=== PATIENT | male | born 1955 | race Caucasian/White ===

== ENCOUNTER → 2017-06-27 | Outpatient (CLI) | payer OTHER ==
--- NOTE | 2017-06-27 10:16 | DIAGNOSTIC IMAGING REPORT ---
(CHEST) THORAX WITHOUT CT DOSE: 335.63 mGy.cm HISTORY: Dyspnea R93.8 [facility] 06/27/17 AT 10:20. ARRIVE 9:50 TECHNIQUE: Multiaxial CT images of the chest were performed without contrast. A dose lowering technique was utilized adhering to the principles of ALARA. COMPARISON: None. FINDINGS: Minimal scattered atelectasis left lung base. Mild pleural thickening left base. No well-defined focal infiltrate or lungs otherwise appear clear. No evidence for significant pleural effusion. No well-defined focal infiltrate. No significant hilar or mediastinal adenopathy. Operative findings consistent with a prior median sternotomy with coronary arterial calcification. IMPRESSION: 1. Scattered pleural thickening and atelectasis left mid and lower lung region. 2. No significant evidence for a pleural effusion. 3. Study is otherwise negative with findings of a prior median sternotomy The above report was generated using voice recognition software. It may contain grammatical, syntax or spelling errors. Electronically signed by: Joaquin Todd M.D. 06/27/2017 10:15 AM Dictated Date/Time: 06/27/2017 10:08 AM
== END | disposition home or self-care (01) ==
LOC: C.CTS 09:52
PROVIDERS: ATTEND Internal Medicine Critical Care Medicine
DX: R91.8 Other nonspecific abnormal finding of lung field (principal); R93.8 Abnormal findings on diagnostic imaging of other specified body structures

== ENCOUNTER → 2017-08-13 | Outpatient (CLI) | payer OTHER | END | disposition home or self-care (01) | LOC: C.PATHSPEC 18:08 | PROVIDERS: ATTEND Dermatology | DX: C44.01 Basal cell carcinoma of skin of lip (principal); D22.5 Melanocytic nevi of trunk ==

== ENCOUNTER → 2017-09-02 | Outpatient (CLI) | payer OTHER ==
--- NOTE | 2017-09-02 13:49 | DIAGNOSTIC IMAGING REPORT ---
RENAL ULTRASOUND HISTORY: I25.10 CAD (coronary artery disease)I10 [id number] chronic kidney disease. COMPARISON: None. FINDINGS: Right kidney: 9.8 cm. No hydronephrosis. There are few small cysts with the largest measuring 8 mm. Moderate cortical renal thinning with increased cortical echogenicity. Left kidney: 10.1 cm. No hydronephrosis. Moderate cortical renal thinning with increased cortical echogenicity. Bladder: Mild bladder wall thickening. The bilateral ureteral jets were identified. IMPRESSION: 1. No hydronephrosis. 2. Moderate bilateral cortical renal thinning with increased cortical echogenicity suggestive of medical renal disease. 3. Mild bladder wall thickening Electronically signed by: Hernesto Huang M.D. 09/02/2017 1:47 PM Dictated Date/Time: 09/02/2017 1:43 PM
== END | disposition home or self-care (01) ==
LOC: C.ULTR 13:08
PROVIDERS: ATTEND Internal Medicine Nephrology
DX: I25.10 Atherosclerotic heart disease of native coronary artery without angina pectoris (principal); I12.9 Hypertensive chronic kidney disease with stage 1 through stage 4 chronic kidney disease, or unspecified chronic kidney disease; N18.3 Chronic kidney disease, stage 3 (moderate)

== ENCOUNTER → 2017-09-02 | Outpatient (CLI) | payer OTHER ==
[2017-09-02 14:38] LABS: HEMATOCRIT 39.9 % (42-52); HEMOGLOBIN 13.4 g/dL (14.0-18.0); MEAN CELL VOLUME 84.7 fL (80-100); MEAN CORPUSCULAR HEMOGLOBIN 28.5 pg (25-34); MEAN CORPUSCULAR HGB CONC 33.6 g/dl (32-36); PLATELET COUNT 268 K/uL (130-400); RED CELL DISTRIBUTION WIDTH CV 14.4 % (11.5-14.5); RED CELL DISTRIBUTION WIDTH SD 44.9 fL (36.4-46.3); WHITE BLOOD COUNT 5.39 K/uL (4.8-10.8)
[2017-09-02 15:10] LABS: ALBUMIN 3.4 gm/dl (3.4-5.0); BLOOD UREA NITROGEN 31 mg/dl (7-18); CALCIUM 9.3 mg/dl (8.5-10.1); CARBON DIOXIDE 26 mmol/L (21-32); CREATININE 2.53 mg/dl (0.60-1.40); GLUCOSE 90 mg/dl (70-99); POTASSIUM 4.7 mmol/L (3.5-5.1); SODIUM 135 mmol/L (136-145)
[2017-09-02 15:13] LABS: ALKALINE PHOSPHATASE 96 U/L (45-117); ALT/SGPT 30 U/L (12-78); AST/SGOT 22 U/L (15-37)
== END | disposition home or self-care (01) ==
LOC: C.LAB1850 13:50
PROVIDERS: ATTEND Internal Medicine Nephrology
DX: I25.10 Atherosclerotic heart disease of native coronary artery without angina pectoris (principal); I12.9 Hypertensive chronic kidney disease with stage 1 through stage 4 chronic kidney disease, or unspecified chronic kidney disease; N18.3 Chronic kidney disease, stage 3 (moderate)

== ENCOUNTER → 2017-12-12 | Outpatient (CLI) | payer OTHER ==
[2017-12-12 15:29] LABS: ALBUMIN 3.5 gm/dl (3.4-5.0); BLOOD UREA NITROGEN 54 mg/dl (7-18); CARBON DIOXIDE 23 mmol/L (21-32); CREATININE 3.24 mg/dl (0.60-1.40); GLUCOSE 98 mg/dl (70-99); PHOSPHORUS 3.6 mg/dl (2.5-4.9); POTASSIUM 4.3 mmol/L (3.5-5.1); SODIUM 135 mmol/L (136-145)
== END | disposition home or self-care (01) ==
LOC: C.LAB1850 13:06
PROVIDERS: ATTEND Internal Medicine Nephrology
DX: I10 Essential (primary) hypertension (principal); N18.3 Chronic kidney disease, stage 3 (moderate); R80.9 Proteinuria, unspecified; N25.81 Secondary hyperparathyroidism of renal origin

== ENCOUNTER → 2017-12-25 | Outpatient (CLI) | payer OTHER ==
[2017-12-25 15:08] LABS: ALBUMIN 3.5 gm/dl (3.4-5.0); BLOOD UREA NITROGEN 61 mg/dl (7-18); CALCIUM 8.9 mg/dl (8.5-10.1); CARBON DIOXIDE 24 mmol/L (21-32); CREATININE 3.05 mg/dl (0.60-1.40); GLUCOSE 87 mg/dl (70-99); PHOSPHORUS 3.1 mg/dl (2.5-4.9); POTASSIUM 4.2 mmol/L (3.5-5.1); SODIUM 136 mmol/L (136-145)
== END | disposition home or self-care (01) ==
LOC: C.LAB1850 13:27
PROVIDERS: ATTEND Internal Medicine Nephrology
DX: I12.9 Hypertensive chronic kidney disease with stage 1 through stage 4 chronic kidney disease, or unspecified chronic kidney disease (principal); N18.3 Chronic kidney disease, stage 3 (moderate); R80.9 Proteinuria, unspecified; N25.81 Secondary hyperparathyroidism of renal origin

== ENCOUNTER 2022-08-09 16:29 | Inpatient (IN) ==
--- NOTE | 2022-08-09 16:44 | ED Triage Note ---
Date of Service August 09, 2022 History of Present Illness This patient was briefly evaluated while in triage. An abbreviated physical exam was performed. This patient is a 67-year-old Male who presents to the ED for evaluation of low- grade fevers for the past week, today was 101. History of kidney transplant in May of this year at [facility] and his kidney DrGeeta said to go to ER. Having a little burning with urination and mild right abd pain. No URI symptoms. Has also been getting dizzy at times when sits up from lying flat. Denies missing any of his antirejection meds. Physical Exam CONSTITUTIONAL: No acute distress. Well appearing. RESPIRATORY: Clear to auscultation bilaterally. Equal expansion bilaterally. CARDIOVASCULAR: Regular rate and rhythm, Loud murmur (pt reports this is referred from his fistula). Normal peripheral perfusion. GASTROINTESTINAL: Soft, mildly tender in right flank and lower abd NEUROLOGIC: Alert and oriented X 4 with normal affect. Initial orders for labs and / or imaging were placed and patient was placed in the waiting area until a bed is available. Please see further documentation for the full ED course.
--- NOTE | 2022-08-09 17:29 | XRay Report ---
XR chest 1V portable CLINICAL HISTORY: Fever COMPARISON STUDY: Chest radiographs of June 21, 2022. Chest CT December 04, 2019. FINDINGS: Median sternotomy wires and mediastinal surgical clips are noted. Linear densities within t he left lung are unchanged and favor scarring. Blunting of the left costophrenic angle is chronic. Th ere is no pneumothorax or pleural effusion. There is been no change in appearance of the chest. Cardi omediastinal silhouette is stable. No consolidation is identified. IMPRESSION: No acute cardiopulmonary findings. ACT 112: Negative or not required by law. Electronically signed by: Dick Maldonado M.D. 08/09/2022 5:27 PM
[2022-08-09 17:44] LABS: Basophils # (auto) 0.01 K/uL (0-0.2); Basophils % (auto) 0.3 %; Eosinophils # (auto) 0.01 K/uL (0-0.50); Eosinophils % (auto) 0.3 %; Hemoglobin 11.9 g/dl (14.0-18.0); Immature Granulocytes # (auto) 0.02 K/uL (0.01-0.20); Immature Granulocytes % (auto) 0.5 %; Lymphocytes # (auto) 0.16 K/uL (1.2-3.4); Mean Corpuscular Hemoglobin 29.4 pg (25.0-34.0); Mean Corpuscular Hgb Conc 33.1 g/dL (32.0-36.0); Mean Corpuscular Volume 88.9 fL (80.0-100.0); Mean Platelet Volume 9.8 fL (9.4-12.4); Monocytes # (auto) 0.77 K/uL (0.11-0.59); Monocytes % (auto) 19.3 %; Neutrophils # (auto) 3.03 K/uL (1.40-6.50); Neutrophils % (auto) 75.6 %; Platelet Count 177 K/uL (130-400); RDW Coefficient of Variation 13.2 % (11.5-14.5); Red Blood Count 4.05 M/uL (4.70-6.10)
[2022-08-09 17:53] LABS: Albumin Globulin Ratio 1.5 (0.9-2); Albumin Level 4.3 gm/dl (3.4-5.0); BUN Creatinine Ratio 14.1 (10-20); Bilirubin,Total 0.8 mg/dl (0.2-1.0); Creatinine Clr Calc Pharmacy 36.9 ml/min; Est GFR (African American) 39.1 ml/min; Est GFR (Non-African American) 33.7 ml/min; Globulin 2.8 gm/dl (2.5-4.0); Potassium 5.1 mmol/L (3.5-5.1); Total Protein 7.1 gm/dl (6.0-8.3)
[2022-08-09 18:03] LABS: INR 1.1 (0.9-1.1); Prothrombin Time 12.1 Seconds (9.0-12.0)
[2022-08-09] MEDS ORDERED: SODIUM CHLORIDE 0.9% 1000ML 1,000 ML IV ONE (18:09)
[2022-08-09] MEDS ORDERED: CEFEPIME 2,000 MG/20 ML VIAL IV STA (18:09)
--- NOTE | 2022-08-09 18:15 | Emergency Department Note ---
Impression & Plan Kidney transplanted, Leukopenia, Abdominal pain ED Provider Note NAME: MANUEL HAAS AGE: 67 SEX: M : 1955 ARRIVES VIA: Walk-In INFORMANT: Patient ED PROVIDER(S): Sony Gold DO CHIEF COMPLAINT: fever HPI: Patient is a 67-year-old male who presents ER status post CAD with stents, pleural effusion, renal transplant in May who has been having temperatures of 100.5 since this past Saturday. Temperature past 24 hours was 101. Was sent in by [facility] transplant team. He admits to some pain with urination/discomfort as it feels warm when he urinates. He has some intermittent pain over the site but denies all other complaints. No headache or change in vision. No chest pain or shortness of breath. No nausea, vomiting, or diarrhea. No cough or runny nose. PAST MEDICAL HISTORY:See Below PAST SURGICAL HISTORY:See Below FAMILY HISTORY:See Below SOCIAL HISTORY:See Below HOME MEDICATIONS:See Below ALLERGIES:See Below VITALS:See Below PHYSICAL EXAMINATION: GENERAL: Sitting up in bed, alert, well appearing, well nourished, no distress, non-toxic EYE EXAM: normal conjunctiva. OROPHARYNX: no exudate, no erythema, lips, buccal mucosa, and tongue normal and mucous membranes are moist NECK: supple, no nuchal rigidity, no adenopathy, non-tender LUNGS: Clear to auscultation. Normal chest wall mechanics HEART: no murmurs, S1 normal and S2 normal ABDOMEN: abdomen soft, non-tender, normo-active bowel sounds, no masses, no rebound or guarding. Incision in right lower quadrant is clean dry and intact. No tenderness. No swelling. No redness. UPPER EXTREMITIES: upper extremities are grossly normal. LOWER EXTREMITIES: No pitting edema. NEURO EXAM: Normal sensorium, cranial nerves II-XII grossly intact, normal speech, no gross weakness of arms, no gross weakness of legs. MEDICAL DECISION MAKING: Patient is a 67-year-old male who presents ER for above-stated complaint. IV was established blood was obtained. Labs show mild leukopenia at 4000. No significant anemia. BMP with mild hyponatremia at 128. Creatinine 1.9 and per his transplant team baseline is 1.5-1.7. Magnesium slightly low at 1.5. LFTs bilirubin was unremarkable. Pro-Ebenezer 0.32. UA was clean. Bio fire was negative. CT shows edema and fat stranding in the right lower quadrant around the kidney. They are concerned that this may be Pro. UA does not suggest this and based on these findings and her recent transplant I am concerned that this is rejection. Patient was given IV antibiotics. He was given IV fluids. He was updated at bedside. Discussed with Dr. Jeronimo from [facility] transplant team. Patient was accepted to their service but currently there are no beds. Likely a 24-hour wait. Discussed with Dr. Ama Macias for further evaluation management and treatment here. Did update her in regards to Dr. Jeronimo's information. Patient was given IV cefepime while in the ER. Triage Nursing notes reviewed. Limited review of prior medical records performed Vital Signs: reviewed and remarkable for HTNB Differential diagnosis: Differential diagnosis includes etiologies such as sepsis, UTI, pneumonia, metabolic, electrolyte abnormalities, cardiac sources, intracerebral event, toxicologic, neurological, as well as others were entertained. ER treatment provided: See below Diagnostics interpreted by me include EKG and cardiac monitoring as listed below: -Cardiac Monitoring: An order was placed for continuous cardiac monitoring. The monitor shows a rate of 80 with sinus rhythm. -ECG: none -Laboratory studies:Interpreted by me as stated above in MDM and shown below. Imaging studies: Xrays: As interpreted by me: Portable AP upright 1 view of the chest shows no pneumonia CTs show: CT abdomen pelvis as described above per radiology Consultation(s): As described in MDM Procedures:none Critical Care: None Past Med/Surg History Medical History (Updated 08/09/22 @ 22:58 by Lucretia Macias DO) CAD (coronary artery disease) CKD (chronic kidney disease), stage IV Dyslipidemia Hypertension Kidney transplanted 05/21/22 [facility] Multiple lung nodules on CT Prior history of smoking Pleural effusion, left Prediabetes Primary hypogonadism in male Vitamin D deficiency Surgical History S/P arteriovenous (AV) fistula creation S/P CABG (coronary artery bypass graft) S/P coronary artery stent placement Family History Sister Coronary heart disease Hx of CABG ESRD (end stage renal disease) Unknown Colon cancer Mother Coronary heart disease PAD (peripheral artery disease) Denies family history of Ovarian cancer Prostate cancer Myocardial infarction Breast cancer Social History Smoking Status: Former smoker Tobacco Type: Cigarettes Age Started Using Tobacco: 15; Age Quit Using Tobacco: 38; packs per day: 1.5; Cigarettes Per Day: 20; Second Hand Exposure: No; Hx Alcohol Use: Yes (Socially ) Hx Substance Use: No Preferred Language: German Scrap Piler Required: No marital status: Current Living Situation: Spouse current occupational status: retired Feels Safe at Home: Yes Childhood Exposure to Second-Hand Smoke: Yes caffeine: No Dental Care, Regularly: Yes Physical Activity Frequency: 1-2 Times per Week Seatbelt Use: always Sunscreen Use: Yes Allergies Allergies Allergy/AdvReac Type Severity Reaction Status Date / Time iodine Allergy Unknown Hives Verified 08/09/22 20:28 Penicillins Allergy Unknown Hives Verified 08/09/22 20:28 shellfish derived Allergy Unknown Hives Verified 08/09/22 20:28 Home Meds Home Medications Medication Instructions Recorded Confirmed aspirin 81 mg tablet,delayed 81 mg PO DAILY 12/23/18 08/09/22 release magnesium oxide 800 mg PO BID 06/20/22 08/09/22 mycophenolate mofetil 250 mg 1,000 mg PO BID 06/20/22 08/09/22 capsule (CellCept) tacrolimus 1 mg capsule, 8 mg PO Q12H 06/20/22 08/09/22 immediate-release (Prograf) fexofenadine 180 mg tablet 180 mg PO DAILY PRN allergies 06/21/22 08/09/22 (Allergy Relief (fexofenadine)) ondansetron HCl 4 mg tablet 4 mg PO Q8H PRN Nausea 06/21/22 08/09/22 simethicone 80 mg chewable tablet 80 mg PO DAILY PRN .gas/bloating 06/21/22 08/09/22 (Gas Relief (simethicone)) sulfamethoxazole 400 1 tab PO .COMPLEX 07/18/22 08/09/22 mg-trimethoprim 80 mg tablet acetaminophen 500 mg tablet 1,000 mg PO HS 08/09/22 08/09/22 (Tylenol Extra Strength) calcium carbonate 300 mg (750 mg) 600 mg PO BID PRN Acid Reflux 08/09/22 08/09/22 chewable tablet (Tums) famotidine 20 mg tablet (Pepcid AC) 20 mg PO DAILY PRN Acid Reflux 08/09/22 08/09/22 tamsulosin 0.4 mg capsule 0.4 mg PO QPM 08/09/22 08/09/22 Previous Rx's Medication Instructions Recorded metoprolol succinate 50 mg 50 mg PO DAILY #90 tabs 06/11/22 tablet,extended release 24 hr furosemide 40 mg tablet (Lasix) 40 mg PO DAILY PRN edema #30 tabs 06/21/22 atorvastatin 40 mg tablet 40 mg PO QPM #90 tabs 07/11/22 clopidogrel 75 mg tablet (Plavix) 75 mg PO DAILY #90 tabs 07/11/22 Results & Data (ED) Vital Signs Vital Signs - 24 hr 08/09/22 16:41 08/09/22 17:57 Temperature 36.7 C 37.0 C Temperature Source Temporal Artery Scan Oral Pulse Rate 89 Pulse Rate [Right Finger] 87 Respiratory Rate 18 18 Respiratory Effort / Characteristics Non-Labored Spontaneous Respiratory Depth Normal Respiratory Pattern Regular Blood Pressure 149/64 H Blood Pressure [Right Arm] 146/74 H Blood Pressure Mean 92 Blood Pressure Mean [Right Arm] 98 Blood Pressure Position [Right Arm] Lying Pulse Oximetry 97 99 Oxygen Delivery Method Room Air Room Air Sepsis Recent Fever Within 48 Hours No Sepsis New/Unexplained Change in Mental Status No Sepsis Action Taken by Nursing No Action Required Laboratory Data 08/09/22 17:08 08/09/22 17:08 Lab Results 08/09/22 08/09/22 08/09/22 Range/Units 17:08 17:08 17:08 WBC 4.00 L (4.8-10.8) K/ul RBC 4.05 L (4.70-6.10) M/uL Hgb 11.9 L (14.0-18.0) g/dl Hct 36.0 L (42.0-52.0) % MCV 88.9 (80.0-100.0) fL MCH 29.4 (25.0-34.0) pg MCHC 33.1 (32.0-36.0) g/dL RDW Std Deviation 43.0 (36.4-46.3) fL RDW Coeff of Thalia 13.2 (11.5-14.5) % Plt Count 177 (130-400) K/uL MPV 9.8 (9.4-12.4) fL Immature Gran % (Auto) 0.5 % Neut % (Auto) 75.6 % Lymph % (Auto) 4.0 % [place] % (Auto) 19.3 % Eos % (Auto) 0.3 % Baso % (Auto) 0.3 % Neut # (Auto) 3.03 (1.40-6.50) K/uL Lymph # (Auto) 0.16 L (1.2-3.4) K/uL [place] # (Auto) 0.77 H (0.11-0.59) K/uL Eos # (Auto) 0.01 (0-0.50) K/uL Baso # (Auto) 0.01 (0-0.2) K/uL Immature Gran # (Auto) 0.02 (0.01-0.20) K/uL PT 12.1 H (9.0-12.0) Seconds INR 1.1 (0.9-1.1) Sodium 128 L (136-145) mmol/L Potassium 5.1 (3.5-5.1) mmol/L Chloride 98 (98-107) mmol/L Carbon Dioxide 24 (21-32) mmol/L Anion Gap 6 (3-11) BUN 28 H (6-23) mg/dl Creatinine 1.98 H (0.6-1.4) mg/dl Est Cr Clr Drug Dosing 36.9 ml/min Est GFR ( Amer) 39.1 ml/min Est GFR (Non-Af Amer) 33.7 ml/min BUN/Creatinine Ratio 14.1 (10-20) Glucose 146 H (70-99(Fasting)) mg/dl Lactate (0.4-2.0) mmol/L Calcium 10.0 (8.6-10.3) mg/dl Phosphorus 2.5 (2.5-4.9) mg/dl Magnesium 1.5 L (1.7-2.4) mg/dl Total Bilirubin 0.8 (0.2-1.0) mg/dl AST 20 (13-39) U/L ALT 23 (7-52) U/L Alkaline Phosphatase 105 H (34-104) U/L Total Creatine Kinase 60 (30-223) U/L Total Protein 7.1 (6.0-8.3) gm/dl Albumin 4.3 (3.4-5.0) gm/dl Globulin 2.8 (2.5-4.0) gm/dl Albumin/Globulin Ratio 1.5 (0.9-2) Procalcitonin (0-0.5) ng/ml Urine Color Urine Appearance (Clear) Urine pH (4.5-7.5) Ur Specific [place] (1.000-1.030) Urine Protein (Negative) Urine Glucose (UA) (Negative) Urine Ketones (Negative) Urine Blood (Negative) Urine Nitrite (Negative) Urine Bilirubin (Negative) Urine Urobilinogen (Negative) Ur Leukocyte Esterase (Negative) Urine WBC (Auto) (0-5) /hpf Urine RBC (Auto) (0-4) /hpf U Hyaline Cast (Auto) (0-5) /lpf U Epithel Cells (Auto) (0-5) /lpf Urine Bacteria (Auto) (Negative) Adenovirus (PCR) (NotDetected) B. pertussis DNA (PCR) (NotDetected) B.parapertussis DNA PCR (NotDetected) C. pneumoniae DNA (PCR) (NotDetected) Coronavirus OC43 (PCR) (NotDetected) Coronavirus HKU1 (PCR) (NotDetected) Coronavirus 229E (PCR) (NotDetected) SARS-CoV-2 (PCR) (NotDetected) Coronavirus NL63 (PCR) (NotDetected) Human Metapneumovir PCR (NotDetected) Influenza Type A (PCR) (NotDetected) Influenza Type B (PCR) (NotDetected) M. pneumoniae (PCR) (NotDetected) Parainfluenza 1 (PCR) (NotDetected) Parainfluenza 2 (PCR) (NotDetected) Parainfluenza 3 (PCR) (NotDetected) Parainfluenza 4 (PCR) (NotDetected) RSV (PCR) (NotDetected) Entero/Rhino (PCR) (NotDetected) 08/09/22 08/09/22 08/09/22 Range/Units 17:08 17:08 17:59 WBC (4.8-10.8) K/ul RBC (4.70-6.10) M/uL Hgb (14.0-18.0) g/dl Hct (42.0-52.0) % MCV (80.0-100.0) fL MCH (25.0-34.0) pg MCHC (32.0-36.0) g/dL RDW Std Deviation (36.4-46.3) fL RDW Coeff of Thalia (11.5-14.5) % Plt Count (130-400) K/uL MPV (9.4-12.4) fL Immature Gran % (Auto) % Neut % (Auto) % Lymph % (Auto) % [place] % (Auto) % Eos % (Auto) % Baso % (Auto) % Neut # (Auto) (1.40-6.50) K/uL Lymph # (Auto) (1.2-3.4) K/uL [place] # (Auto) (0.11-0.59) K/uL Eos # (Auto) (0-0.50) K/uL Baso # (Auto) (0-0.2) K/uL Immature Gran # (Auto) (0.01-0.20) K/uL PT (9.0-12.0) Seconds INR (0.9-1.1) Sodium (136-145) mmol/L Potassium (3.5-5.1) mmol/L Chloride (98-107) mmol/L Carbon Dioxide (21-32) mmol/L Anion Gap (3-11) BUN (6-23) mg/dl Creatinine (0.6-1.4) mg/dl Est Cr Clr Drug Dosing ml/min Est GFR ( Amer) ml/min Est GFR (Non-Af Amer) ml/min BUN/Creatinine Ratio (10-20) Glucose (70-99(Fasting)) mg/dl Lactate (0.4-2.0) mmol/L Calcium (8.6-10.3) mg/dl Phosphorus (2.5-4.9) mg/dl Magnesium (1.7-2.4) mg/dl Total Bilirubin (0.2-1.0) mg/dl AST (13-39) U/L ALT (7-52) U/L Alkaline Phosphatase (34-104) U/L Total Creatine Kinase (30-223) U/L Total Protein (6.0-8.3) gm/dl Albumin (3.4-5.0) gm/dl Globulin (2.5-4.0) gm/dl Albumin/Globulin Ratio (0.9-2) Procalcitonin 0.32 (0-0.5) ng/ml Urine Color Yellow Urine Appearance Clear (Clear) Urine pH 5.0 (4.5-7.5) Ur Specific [place] 1.018 (1.000-1.030) Urine Protein Trace H (Negative) Urine Glucose (UA) Negative (Negative) Urine Ketones Negative (Negative) Urine Blood Negative (Negative) Urine Nitrite Negative (Negative) Urine Bilirubin Negative (Negative) Urine Urobilinogen Negative (Negative) Ur Leukocyte Esterase Negative (Negative) Urine WBC (Auto) 1-5 (0-5) /hpf Urine RBC (Auto) 0-4 (0-4) /hpf U Hyaline Cast (Auto) 1-5 (0-5) /lpf U Epithel Cells (Auto) 5-10 H (0-5) /lpf Urine Bacteria (Auto) Negative (Negative) Adenovirus (PCR) Not Detected (NotDetected) B. pertussis DNA (PCR) Not Detected (NotDetected) B.parapertussis DNA PCR Not Detected (NotDetected) C. pneumoniae DNA (PCR) Not Detected (NotDetected) Coronavirus OC43 (PCR) Not Detected (NotDetected) Coronavirus HKU1 (PCR) Not Detected (NotDetected) Coronavirus 229E (PCR) Not Detected (NotDetected) SARS-CoV-2 (PCR) Not Detected (NotDetected) Coronavirus NL63 (PCR) Not Detected (NotDetected) Human Metapneumovir PCR Not Detected (NotDetected) Influenza Type A (PCR) Not Detected (NotDetected) Influenza Type B (PCR) Not Detected (NotDetected) M. pneumoniae (PCR) Not Detected (NotDetected) Parainfluenza 1 (PCR) Not Detected (NotDetected) Parainfluenza 2 (PCR) Not Detected (NotDetected) Parainfluenza 3 (PCR) Not Detected (NotDetected) Parainfluenza 4 (PCR) Not Detected (NotDetected) RSV (PCR) Not Detected (NotDetected) Entero/Rhino (PCR) Not Detected (NotDetected) 08/09/22 Range/Units 18:10 WBC (4.8-10.8) K/ul RBC (4.70-6.10) M/uL Hgb (14.0-18.0) g/dl Hct (42.0-52.0) % MCV (80.0-100.0) fL MCH (25.0-34.0) pg MCHC (32.0-36.0) g/dL RDW Std Deviation (36.4-46.3) fL RDW Coeff of Thalia (11.5-14.5) % Plt Count (130-400) K/uL MPV (9.4-12.4) fL Immature Gran % (Auto) % Neut % (Auto) % Lymph % (Auto) % [place] % (Auto) % Eos % (Auto) % Baso % (Auto) % Neut # (Auto) (1.40-6.50) K/uL Lymph # (Auto) (1.2-3.4) K/uL [place] # (Auto) (0.11-0.59) K/uL Eos # (Auto) (0-0.50) K/uL Baso # (Auto) (0-0.2) K/uL Immature Gran # (Auto) (0.01-0.20) K/uL PT (9.0-12.0) Seconds INR (0.9-1.1) Sodium (136-145) mmol/L Potassium (3.5-5.1) mmol/L Chloride (98-107) mmol/L Carbon Dioxide (21-32) mmol/L Anion Gap (3-11) BUN (6-23) mg/dl Creatinine (0.6-1.4) mg/dl Est Cr Clr Drug Dosing ml/min Est GFR ( Amer) ml/min Est GFR (Non-Af Amer) ml/min BUN/Creatinine Ratio (10-20) Glucose (70-99(Fasting)) mg/dl Lactate 0.7 (0.4-2.0) mmol/L Calcium (8.6-10.3) mg/dl Phosphorus (2.5-4.9) mg/dl Magnesium (1.7-2.4) mg/dl Total Bilirubin (0.2-1.0) mg/dl AST (13-39) U/L ALT (7-52) U/L Alkaline Phosphatase (34-104) U/L Total Creatine Kinase (30-223) U/L Total Protein (6.0-8.3) gm/dl Albumin (3.4-5.0) gm/dl Globulin (2.5-4.0) gm/dl Albumin/Globulin Ratio (0.9-2) Procalcitonin (0-0.5) ng/ml Urine Color Urine Appearance (Clear) Urine pH (4.5-7.5) Ur Specific [place] (1.000-1.030) Urine Protein (Negative) Urine Glucose (UA) (Negative) Urine Ketones (Negative) Urine Blood (Negative) Urine Nitrite (Negative) Urine Bilirubin (Negative) Urine Urobilinogen (Negative) Ur Leukocyte Esterase (Negative) Urine WBC (Auto) (0-5) /hpf Urine RBC (Auto) (0-4) /hpf U Hyaline Cast (Auto) (0-5) /lpf U Epithel Cells (Auto) (0-5) /lpf Urine Bacteria (Auto) (Negative) Adenovirus (PCR) (NotDetected) B. pertussis DNA (PCR) (NotDetected) B.parapertussis DNA PCR (NotDetected) C. pneumoniae DNA (PCR) (NotDetected) Coronavirus OC43 (PCR) (NotDetected) Coronavirus HKU1 (PCR) (NotDetected) Coronavirus 229E (PCR) (NotDetected) SARS-CoV-2 (PCR) (NotDetected) Coronavirus NL63 (PCR) (NotDetected) Human Metapneumovir PCR (NotDetected) Influenza Type A (PCR) (NotDetected) Influenza Type B (PCR) (NotDetected) M. pneumoniae (PCR) (NotDetected) Parainfluenza 1 (PCR) (NotDetected) Parainfluenza 2 (PCR) (NotDetected) Parainfluenza 3 (PCR) (NotDetected) Parainfluenza 4 (PCR) (NotDetected) RSV (PCR) (NotDetected) Entero/Rhino (PCR) (NotDetected) Administered Medications Atorvastatin Calcium (Atorvastatin 40 Mg Tab) 40 mg PO QPM LUISITO Stop: 09/08/22 22:15 Last Admin: 08/09/22 22:58 Dose: Not Given Documented By: FRANC Lactated Ringer's (Lr) 1,000 mls @ 100 mls/hr IV .Q10H LUISITO Stop: 08/10/22 18:15 Last Admin: 08/09/22 22:48 Dose: 100 mls/hr Documented By: USP Mycophenolate Mofetil (Mycophenolate Mofetil 250 Mg Cap) 1,000 mg PO BID LUISITO Stop: 09/08/22 22:15 Last Admin: 08/09/22 22:58 Dose: Not Given Documented By: USP Tacrolimus (Tacrolimus 1 Mg Cap) 8 mg PO Q12H LUISITO Stop: 09/08/22 22:15 Last Admin: 08/09/22 22:58 Dose: Not Given Documented By: FRANC Tamsulosin HCl (Tamsulosin Hcl 0.4 Mg Cap) 0.4 mg PO QPM LUISITO Stop: 09/08/22 22:15 Last Admin: 08/09/22 22:59 Dose: Not Given Documented By: FRANC Discontinued Medications Sodium Chloride (Nss 1000ml) 1,000 mls @ 999 mls/hr IV .Q1H1M ONE Stop: 08/09/22 19:09 Last Infusion: 08/09/22 19:27 Dose: 0 mls/hr Documented By: Admin: 08/09/22 18:14 Dose: 999 mls/hr Documented By: PONCHO Cefepime HCl (Maxipime) 2,000 mg in 20 mls @ 5 mls/min IV NOW STA; Protocol Stop: 08/09/22 18:12 Last Admin: 08/09/22 18:14 Dose: 5 mls/min Documented By: PONCHO Imaging Data Radiologist's Impression: Abdomen/Pelvis CT 08/09/22 16:[address] WITHOUT CONTRAST CT DOSE: 416.94 mGy.cm HISTORY: fever, h/o right kidney transplant TECHNIQUE: Multiaxial CT images of the abdomen and pelvis were performed without contrast. A dose lowering technique was utilized adhering to the principles of ALARA. COMPARISON STUDY: None. FINDINGS: Emphysema at the lung bases. There are few linear scarlike densities also seen at the lung bases. No pneumoperitoneum. No pneumatosis. No acute fractures identified. There are poststernotomy changes. The unenhanced liver, gallbladder, spleen, adrenal glands, and pancreas are unremarkable. There are atrophic hoopa kidneys containing a few hypodense lesions. These are technically indeterminate on this noncontrast study but statistically represent cysts. Dominant lesion within the left kidney measures 1.9 cm. No stones or hydronephrosis within the hoopa kidneys. Mild calcified plaque within the normal caliber abdominal aorta. No retroperitoneal lymphadenopathy. Moderate bladder wall thickening with adjacent fat stranding. The prostate gland is normal in size. Suboptimal evaluation for bowel pathology due to the lack of intravenous and oral contrast. However, there is no definite bowel wall thickening or obstruction. [id number] fecal retention is noted. Normal appendix. There is a right lower quadrant renal transplant noted. Right transplant perinephric edema/fat stranding. The right renal transplant appears edematous. There is also edema within the right renal sinus. Small sliver of perinephric fluid seen along the inferior aspect of the right renal transplant on image 327. This measures approximately 4.0 x 2.0 cm. IMPRESSION: 1. There is edema and fat stranding both within and surrounding the right lower quadrant renal transplant. This is nonspecific but favors an acute pyelonephritis. An acute on chronic rejection could also have a similar appearance in the appropriate clinical setting. Recommend correlation with urinalysis. 2. Small sliver of perinephric fluid inferior to the right renal transplant. This is likely reactive.. A developing perinephric abscess is considered less likely given the lack of associated gas but not entirely excluded. 3. Bladder wall thickening with associated fat stranding likely representing a cystitis. Recommend correlation with urinalysis. 4. No bowel wall thickening or obstruction. 5. Additional findings as described above. ACT 112: Negative or not required by law. Electronically signed by: Hernesto Huang M.D. 08/09/2022 6:17 PM Chest X-Ray 08/09/22 16:45 XR chest 1V portable CLINICAL HISTORY: Fever COMPARISON STUDY: Chest radiographs of June 21, 2022. Chest CT December [birth year], 2020. FINDINGS: Median sternotomy wires and mediastinal surgical clips are noted. Linear densities within the left lung are unchanged and favor scarring. Blunting of the left costophrenic angle is chronic. There is no pneumothorax or pleural effusion. There is been no change in appearance of the chest. Cardiomediastinal silhouette is stable. No consolidation is identified. IMPRESSION: No acute cardiopulmonary findings. ACT 112: Negative or not required by law. Electronically signed by: Dick Maldonado M.D. 08/09/2022 5:27 PM Discharge Plan Visit Data Chief Complaint: Fever Stated Complaint: RECENT KIDNEY TRANSPLANT, FEVER ED Provider: Sony Gold Discharge Problem: Kidney transplanted, Leukopenia, Abdominal pain Patient Disposition: Admitted As Inpatient Discharge Instructions Interventions: ED Discharge Assessment Last Done: 08/09/22 21:58
--- NOTE | 2022-08-09 18:19 | CT Scan Report ---
ABDOMEN AND PELVIS CT WITHOUT CONTRAST CT DOSE: 416.94 mGy.cm HISTORY: fever, h/o right kidney transplant TECHNIQUE: Multiaxial CT images of the abdomen and pelvis were performed without contrast. A dose lo wering technique was utilized adhering to the principles of ALARA. COMPARISON STUDY: None. FINDINGS: Emphysema at the lung bases. There are few linear scarlike densities also seen at the lung bases. No pneumoperitoneum. No pneumatosis. No acute fractures identified. There are poststernotomy c hanges. The unenhanced liver, gallbladder, spleen, adrenal glands, and pancreas are unremarkable. The re are atrophic [place] kidneys containing a few hypodense lesions. These are technically indeterminat e on this noncontrast study but statistically represent cysts. Dominant lesion within the left kidney measures 1.9 cm. No stones or hydronephrosis within the [place] kidneys. Mild calcified plaque within the normal caliber abdominal aorta. No retroperitoneal lymphadenopathy. Moderate bladder wall thicke gris with adjacent fat stranding. The prostate gland is normal in size. Suboptimal evaluation for bow el pathology due to the lack of intravenous and oral contrast. However, there is no definite bowel wa ll thickening or obstruction. [id number] fecal retention is noted. Normal appendix. There is a right lower quadrant renal transplant noted. Right transplant perinephric edema/fat stranding. The ri ght renal transplant appears edematous. There is also edema within the right renal sinus. Small slive r of perinephric fluid seen along the inferior aspect of the right renal transplant on image 327. Thi s measures approximately 4.0 x 2.0 cm. IMPRESSION: 1. There is edema and fat stranding both within and surrounding the right lower quadrant renal transp lant. This is nonspecific but favors an acute pyelonephritis. An acute on chronic rejection could als o have a similar appearance in the appropriate clinical setting. Recommend correlation with urinalysi s. 2. Small sliver of perinephric fluid inferior to the right renal transplant. This is likely reactive. . A developing perinephric abscess is considered less likely given the lack of associated gas but not entirely excluded. 3. Bladder wall thickening with associated fat stranding likely representing a cystitis. Recommend co rrelation with urinalysis. 4. No bowel wall thickening or obstruction. 5. Additional findings as described above. ACT 112: Negative or not required by law. Electronically signed by: Hernesto Huang M.D. 08/09/2022 6:17 PM
[2022-08-09 18:26] LABS: Appearance Urine Clear (Clear); Bacteria Urine Automated Negative (Negative); Bilirubin Urine Negative (Negative); Blood Urine Negative (Negative); Color Urine Yellow; Glucose Urine UA Negative (Negative); Ketones Urine Negative (Negative); Leukocyte Esterase Urine Negative (Negative); Nitrite Urine Negative (Negative); Protein Urine Trace (Negative); RBC Urine Automated 0-4 /hpf (0-4); Specific Gravity Urine 1.018 (1.000-1.030); Urobilinogen Urine Negative (Negative)
[2022-08-09 18:26] LABS: Adenovirus PCR Not Detected (NotDetected); Bordetella parapertussis PCR Not Detected (NotDetected); Bordetella pertussis PCR Not Detected (NotDetected); Chlamydia pneumoniae PCR Not Detected (NotDetected); Coronavirus 229E PCR Not Detected (NotDetected); Coronavirus CoV-2 (COVID19)PCR Not Detected (NotDetected); Coronavirus HKU1 PCR Not Detected (NotDetected); Coronavirus NL63 PCR Not Detected (NotDetected); Coronavirus OC43PCR Not Detected (NotDetected); Human Metapneumovirus PCR Not Detected (NotDetected); Influenza A PCR Not Detected (NotDetected); Influenza B PCR Not Detected (NotDetected); Mycoplasma pneumoniae PCR Not Detected (NotDetected); Parainfluenza Virus 1 PCR Not Detected (NotDetected); Parainfluenza Virus 2 PCR Not Detected (NotDetected); Parainfluenza Virus 3 PCR Not Detected (NotDetected); Parainfluenza Virus 4 PCR Not Detected (NotDetected); Respiratory Syncytial VirusPCR Not Detected (NotDetected); Rhinovirus/Enterovirus PCR Not Detected (NotDetected)
--- NOTE | 2022-08-09 20:36 | History & Physical Report ---
Date of Service August 09, 2022 Assessment & Plan (1) Fever: Plan: 67-year-old male with history of end-stage renal disease status post kidney transplant performed on 05/21/2022 at [facility]. Patient has been on antirejection regimen to include mycophenolate mofetil and tacrolimus as well as prophylactic Bactrim 3 times weekly. He presents with low-grade fever ongoing for the last 7 days. Higher temperature today Tmax = 101 prompted him to seek care in the ER. No obvious source of infection with exception of a possible sinusitis. Patient denies cough, chest pain, shortness of breath. Denies abdominal pain, nausea, vomiting. Some mild dysuria noted yesterday. Otherwise, no complaints. Work-up reveals leukopenia with WBC = 4 with lymphopenia. Urinalysis with trace protein. No obvious infection. Respiratory BioFire panel completely negative. Chest x-ray with no obvious infiltrate. CT of the abdomen as above with perinephric stranding and inflammation concerning for infection versus acute on chronic rejection. Case was discussed with transplant team at [facility]. Patient has been accepted for transfer however, no beds are available at this time. We will admit to medical Follow culturesblood and urine sent from the ER Empiric cefepime Tylenol as needed for fever (2) Kidney transplanted: Plan: Patient with history of end-stage renal disease of unknown etiology status post kidney transplant performed on 05/21/2022 at [facility]. He presents today with several days of intermittent fever. CT abdomen findings as above, perinephric inflammation and stranding concerning for infection versus acute on chronic rejection. Patient's urinalysis and overall clinical picture does not strongly support an infection of urinary source. Unfortunately, findings are concerning for acute rejection - uncertain to what degree CT findings represent postoperative changes. Patient's renal function is slightly worse than baseline with BUN = 28, creatinine = 1.98 (baseline creatinine reported to be 1.5-1.7). Of note, he has been on an increased dose of Bactrim which can lead to elevated creatinine levels. Patient's urinalysis with only trace protein present. Continue mycophenolate mofetil 1000 mg p.o. twice daily Continue tacrolimus 8 mg p.o. every 12 hours Consider treatment with high-dose Solu-Medrol after discussion with [facility] transplant team Check tacrolimus level CMV sent from ER Patient has been accepted for transfer to [facility]. Unfortunately, no beds are available at this time. Will acutely manage until transfer occurs. (3) CAD (coronary artery disease): Plan: Chronic. Stable. Patient status post CABG with subsequent stent placement in May 2022 closely following his transplant surgery. He denies chest pain or dyspnea. Continue aspirin 81 mg p.o. daily Continue Plavix 75 mg p.o. daily Continue atorvastatin 40 mg p.o. every afternoon Continue metoprolol 50 mg p.o. daily (4) Hypertension: Plan: Blood pressure mildly elevated at 146/74 Continue metoprolol 50 mg p.o. daily Continue to monitor (5) Dyslipidemia: Plan: Chronic. Stable. Continue atorvastatin 40 mg p.o. every afternoon FENLR at 100 mL/h x 2 L, monitor electrolytes and replete as neededBMP in the morning, heart healthy diet as tolerated Prophylaxislow risk for acute DVT. SCDs to bilateral lower extremities Codefull per discussion with patient and Dispositionadmit to medical History of Present Illness Chief Complaint: Fever in immunocompromised patient Primary Care Provider: Kandice Dumont MD Kevin Hough is a pleasant 67-year-old male with history of end-stage renal disease due to unknown etiology status post donor kidney transplantation 05/21/2022. He is on immunosuppressive therapy with mycophenolate mofetil and tacrolimus as well as prophylactic Bactrim 3 times weekly. Patient presents today with complaint of fever. Patient had a routine follow-up appointment with the transplant service at [facility] on 08/02/2022. At that time he was doing well with no acute complaints. Upon returning home, he developed a low-grade fever of 100.1. He was seen in his primary care office on 08/03/2022 with complaint of dizziness and acute sinusitis. He was given a prescription for Levaquin 500 mg daily which, after reviewing the side effects, he did not take due to concern for potential complications with his transplant. He called his PCP again and was told he could increase his Bactrim from his prophylactic dose of 1 tab 3 times weekly (Saturday/Saturday/Saturday) to twice daily dosing x7 days for treatment of presumed sinusitis. Patient has taken 2 days of twice daily dosing thus far. Patient had an elevated temperature last night to 101 which prompted him to come to the ER. He denies chills, body aches, chest pain, cough, shortness of breath. Denies abdominal pain, nausea, vomiting. He has had some loose stools but does not describe diarrhea. No blood or mucus in his bowel movements. He reports normal urine output with no hematuria or foamy urine. Yesterday he did experience some very mild discomfort with urination. No additional complaints at this time In the ER he is afebrile, mildly hypertensive otherwise hemodynamically stable. Normal respiratory status saturating 99% on room air. ER course: Normal saline x1 L Cefepime 2 g IV Allergies Allergy/AdvReac Type Severity Reaction Status Date / Time iodine Allergy Unknown Hives Verified 08/09/22 20:28 Penicillins Allergy Unknown Hives Verified 08/09/22 20:28 shellfish derived Allergy Unknown Hives Verified 08/09/22 20:28 Home Medications Medication Instructions Recorded Confirmed Type aspirin 81 mg tablet,delayed 81 mg PO DAILY 12/23/18 08/09/22 History release metoprolol succinate 50 mg 50 mg PO DAILY #90 tabs 06/11/22 08/09/22 Rx tablet,extended release 24 hr magnesium oxide 800 mg PO BID 06/20/22 08/09/22 History mycophenolate mofetil 250 mg 1,000 mg PO BID 06/20/22 08/09/22 History capsule (CellCept) tacrolimus 1 mg capsule, 8 mg PO Q12H 06/20/22 08/09/22 History immediate-release (Prograf) fexofenadine 180 mg tablet 180 mg PO DAILY PRN allergies 06/21/22 08/09/22 History (Allergy Relief (fexofenadine)) furosemide 40 mg tablet (Lasix) 40 mg PO DAILY PRN edema #30 tabs 06/21/2207/19 Rx ondansetron HCl 4 mg tablet 4 mg PO Q8H PRN Nausea 06/21/22 08/09/22 History simethicone 80 mg chewable tablet 80 mg PO DAILY PRN .gas/bloating 06/21/22 08/09/22 History (Gas Relief (simethicone)) atorvastatin 40 mg tablet 40 mg PO QPM #90 tabs 07/11/22 08/09/22 Rx clopidogrel 75 mg tablet (Plavix) 75 mg PO DAILY #90 tabs 07/11/22 08/09/22 Rx sulfamethoxazole 400 1 tab PO .COMPLEX 07/18/22 08/09/22 History mg-trimethoprim 80 mg tablet acetaminophen 500 mg tablet 1,000 mg PO HS 08/09/22 08/09/22 History (Tylenol Extra Strength) calcium carbonate 300 mg (750 mg) 600 mg PO BID PRN Acid Reflux 08/09/22 08/09/22 History chewable tablet (Tums) famotidine 20 mg tablet (Pepcid AC) 20 mg PO DAILY PRN Acid Reflux 08/09/22 08/09/22 History tamsulosin 0.4 mg capsule 0.4 mg PO QPM 08/09/22 08/09/22 History Past Med/Surg History Medical History (Updated 08/09/22 @ 22:58 by Lucretia Macias DO) CAD (coronary artery disease) CKD (chronic kidney disease), stage IV Dyslipidemia Hypertension Kidney transplanted 05/21/22 [facility] Multiple lung nodules on CT Prior history of smoking Pleural effusion, left Prediabetes Primary hypogonadism in male Vitamin D deficiency Surgical History S/P arteriovenous (AV) fistula creation S/P CABG (coronary artery bypass graft) S/P coronary artery stent placement Family History Sister Coronary heart disease Hx of CABG ESRD (end stage renal disease) Unknown Colon cancer Mother Coronary heart disease PAD (peripheral artery disease) Denies family history of Ovarian cancer Prostate cancer Myocardial infarction Breast cancer Social History Smoking Status: Former smoker Tobacco Type: Cigarettes Age Started Using Tobacco: 15; Age Quit Using Tobacco: 38; packs per day: 1.5; Cigarettes Per Day: 20; Second Hand Exposure: No; Hx Alcohol Use: Yes (Socially ) Hx Substance Use: No Preferred Language: Chadian Dress Operator Required: No marital status: Current Living Situation: Spouse current occupational status: retired Feels Safe at Home: Yes Childhood Exposure to Second-Hand Smoke: Yes caffeine: No Dental Care, Regularly: Yes Physical Activity Frequency: 1-2 Times per Week Seatbelt Use: always Sunscreen Use: Yes Review of Systems Review of Systems: All systems reviewed & are unremarkable except as noted in HPI & below Physical Exam Physical Exam: General: patient resting comfortably, NAD, non-toxic in appearance, AA&O x 4 Skin: warm, dry, intact, no rashes or lesions HEENT: NC/AT, PERRL, EOMI, anicteric sclera, conjunctiva without injection, external ear normal to inspection and nontender, nares patent, moist mucus membr anes, dentition intact, no oropharyngeal lesions, neck supple, trachea midline, no LAD, no thyromegaly, no JVD Heart: +S1/S2, regular, 3/6 systolic ejection murmur across precordium Lungs: equal air entry bilaterally, no rales/rhonchi/wheezes Abd: +BS, soft, NT/ND, no masses/organomegaly/ascites, well-healed incision in right lower quadrant at site of renal transplant. Very mild tenderness with palpation of transplanted kidney. Ext: warm, 2+ pulses in UE/LE bilaterally, no clubbing/cyanosis or edema, AV fistula left upper extremity with palpable thrill Neuro: nonfocal, patient AA&O x 4, speech intact, no facial droop, moving all extremities on command with equal strength 5/5 Results & Data Results & Data Vital Signs (Past 12 Hours) Vital Signs Temp Pulse Pulse Resp BP BP Pulse Ox 08/09/22 17:57 37.0 C 87 18 146/74 H 99 08/09/22 16:41 36.7 C 89 18 149/64 H 97 O2 Del Method 08/09/22 17:57 Room Air 08/09/22 16:41 Room Air Laboratory Results Laboratory Results WBC 4.00 K/ul (4.8-10.8) L 08/09/22 17:08 RBC 4.05 M/uL (4.70-6.10) L 08/09/22 17:08 Hgb 11.9 g/dl (14.0-18.0) L 08/09/22 17:08 Hct 36.0 % (42.0-52.0) L 08/09/22 17:08 MCV 88.9 fL (80.0-100.0) 08/09/22 17:08 MCH 29.4 pg (25.0-34.0) 08/09/22 17:08 MCHC 33.1 g/dL (32.0-36.0) 08/09/22 17:08 RDW Std Deviation 43.0 fL (36.4-46.3) 08/09/22 17:08 RDW Coeff of Thalia 13.2 % (11.5-14.5) 08/09/22 17:08 Plt Count 177 K/uL (130-400) 08/09/22 17:08 MPV 9.8 fL (9.4-12.4) 08/09/22 17:08 Immature Gran % (Auto) 0.5 % 08/09/22 17:08 Neut % (Auto) 75.6 % 08/09/22 17:08 Lymph % (Auto) 4.0 % 08/09/22 17:08 Archer % (Auto) 19.3 % 08/09/22 17:08 Eos % (Auto) 0.3 % 08/09/22 17:08 Baso % (Auto) 0.3 % 08/09/22 17:08 Neut # (Auto) 3.03 K/uL (1.40-6.50) 08/09/22 17:08 Lymph # (Auto) 0.16 K/uL (1.2-3.4) L 08/09/22 17:08 Archer # (Auto) 0.77 K/uL (0.11-0.59) H 08/09/22 17:08 Eos # (Auto) 0.01 K/uL (0-0.50) 08/09/22 17:08 Baso # (Auto) 0.01 K/uL (0-0.2) 08/09/22 17:08 Immature Gran # (Auto) 0.02 K/uL (0.01-0.20) 08/09/22 17:08 PT 12.1 Seconds (9.0-12.0) H 08/09/22 17:08 INR 1.1 (0.9-1.1) 08/09/22 17:08 Sodium 128 mmol/L (136-145) L 08/09/22 17:08 Potassium 5.1 mmol/L (3.5-5.1) 08/09/22 17:08 Chloride 98 mmol/L (98-107) 08/09/22 17:08 Carbon Dioxide 24 mmol/L (21-32) 08/09/22 17:08 Anion Gap 6 (3-11) 08/09/22 17:08 BUN 28 mg/dl (6-23) H 08/09/22 17:08 Creatinine 1.98 mg/dl (0.6-1.4) H 08/09/22 17:08 Est Cr Clr Drug Dosing 36.9 ml/min 08/09/22 17:08 Est GFR ( Amer) 39.1 ml/min 08/09/22 17:08 Est GFR (Non-Af Amer) 33.7 ml/min 08/09/22 17:08 BUN/Creatinine Ratio 14.1 (10-20) 08/09/22 17:08 Glucose 146 mg/dl (70-99(Fasting)) H 08/09/22 17:08 Lactate 0.7 mmol/L (0.4-2.0) 08/09/22 18:10 Calcium 10.0 mg/dl (8.6-10.3) 08/09/22 17:08 Phosphorus Cancelled 08/09/22 22:16 Magnesium Cancelled 08/09/22 22:16 Total Bilirubin 0.8 mg/dl (0.2-1.0) 08/09/22 17:08 AST 20 U/L (13-39) 08/09/22 17:08 ALT 23 U/L (7-52) 08/09/22 17:08 Alkaline Phosphatase 105 U/L (34-104) H 08/09/22 17:08 Total Creatine Kinase Cancelled 08/09/22 22:16 Total Protein 7.1 gm/dl (6.0-8.3) 08/09/22 17:08 Albumin 4.3 gm/dl (3.4-5.0) 08/09/22 17:08 Globulin 2.8 gm/dl (2.5-4.0) 08/09/22 17:08 Albumin/Globulin Ratio 1.5 (0.9-2) 08/09/22 17:08 Procalcitonin 0.32 ng/ml (0-0.5) 08/09/22 17:08 Urine Color Yellow 08/09/22 17:59 Urine Appearance Clear (Clear) 08/09/22 17:59 Urine pH 5.0 (4.5-7.5) 08/09/22 17:59 Ur Specific [place] 1.018 (1.000-1.030) 08/09/22 17:59 Urine Protein Trace (Negative) H 08/09/22 17:59 Urine Glucose (UA) Negative (Negative) 08/09/22 17:59 Urine Ketones Negative (Negative) 08/09/22 17:59 Urine Blood Negative (Negative) 08/09/22 17:59 Urine Nitrite Negative (Negative) 08/09/22 17:59 Urine Bilirubin Negative (Negative) 08/09/22 17:59 Urine Urobilinogen Negative (Negative) 08/09/22 17:59 Ur Leukocyte Esterase Negative (Negative) 08/09/22 17:59 Urine WBC (Auto) 1-5 /hpf (0-5) 08/09/22 17:59 Urine RBC (Auto) 0-4 /hpf (0-4) 08/09/22 17:59 U Hyaline Cast (Auto) 1-5 /lpf (0-5) 08/09/22 17:59 U Epithel Cells (Auto) 5-10 /lpf (0-5) H 08/09/22 17:59 Urine Bacteria (Auto) Negative (Negative) 08/09/22 17:59 Adenovirus (PCR) Not Detected (NotDetected) 08/09/22 17:08 B. pertussis DNA (PCR) Not Detected (NotDetected) 08/09/22 17:08 B.parapertussis DNA PCR Not Detected (NotDetected) 08/09/22 17:08 C. pneumoniae DNA (PCR) Not Detected (NotDetected) 08/09/22 17:08 Coronavirus OC43 (PCR) Not Detected (NotDetected) 08/09/22 17:08 Coronavirus HKU1 (PCR) Not Detected (NotDetected) 08/09/22 17:08 Coronavirus 229E (PCR) Not Detected (NotDetected) 08/09/22 17:08 SARS-CoV-2 (PCR) Not Detected (NotDetected) 08/09/22 17:08 Coronavirus NL63 (PCR) Not Detected (NotDetected) 08/09/22 17:08 Human Metapneumovir PCR Not Detected (NotDetected) 08/09/22 17:08 Influenza Type A (PCR) Not Detected (NotDetected) 08/09/22 17:08 Influenza Type B (PCR) Not Detected (NotDetected) 08/09/22 17:08 M. pneumoniae (PCR) Not Detected (NotDetected) 08/09/22 17:08 Parainfluenza 1 (PCR) Not Detected (NotDetected) 08/09/22 17:08 Parainfluenza 2 (PCR) Not Detected (NotDetected) 08/09/22 17:08 Parainfluenza 3 (PCR) Not Detected (NotDetected) 08/09/22 17:08 Parainfluenza 4 (PCR) Not Detected (NotDetected) 08/09/22 17:08 RSV (PCR) Not Detected (NotDetected) 08/09/22 17:08 Entero/Rhino (PCR) Not Detected (NotDetected) 08/09/22 17:08 Impressions Abdomen/Pelvis CT 08/09/22 16:[address] WITHOUT CONTRAST CT DOSE: 416.94 mGy.cm HISTORY: fever, h/o right kidney transplant TECHNIQUE: Multiaxial CT images of the abdomen and pelvis were performed without contrast. A dose lowering technique was utilized adhering to the principles of ALARA. COMPARISON STUDY: None. FINDINGS: Emphysema at the lung bases. There are few linear scarlike densities also seen at the lung bases. No pneumoperitoneum. No pneumatosis. No acute fractures identified. There are poststernotomy changes. The unenhanced liver, g allbladder, spleen, adrenal glands, and pancreas are unremarkable. There are atrophic ambler kidneys containing a few hypodense lesions. These are technically indeterminate on this noncontrast study but statistically represent cysts. Dominant lesion within the left kidney measures 1.9 cm. No stones or hydronephrosis within the ambler kidneys. Mild calcified plaque within the normal caliber abdominal aorta. No retroperitoneal lymphadenopathy. Moderate bladder wall thickening with adjacent fat stranding. The prostate gland is normal in size. Suboptimal evaluation for bowel pathology due to the lack of intravenous and oral contrast. However, there is no definite bowel wall thickening or obstruction. [id number] fecal retention is noted. Normal appendix. There is a right lower quadrant renal transplant noted. Right transplant perinephric edema/fat stranding. The right renal transplant appears edematous. There is also edema within the right renal sinus. Small sliver of perinephric fluid seen along the inferior aspect of the right renal transplant on image 327. This measures approximately 4.0 x 2.0 cm. IMPRESSION: 1. There is edema and fat stranding both within and surrounding the right lower quadrant renal transplant. This is nonspecific but favors an acute pyelonephritis. An acute on chronic rejection could also have a similar appearance in the appropriate clinical setting. Recommend correlation with urinalysis. 2. Small sliver of perinephric fluid inferior to the right renal transplant. This is likely reactive.. A developing perinephric abscess is considered less likely given the lack of associated gas but not entirely excluded. 3. Bladder wall thickening with associated fat stranding likely representing a cystitis. Recommend correlation with urinalysis. 4. No bowel wall thickening or obstruction. 5. Additional findings as described above. ACT 112: Negative or not required by law. Electronically signed by: Hernesto Huang M.D. 08/09/2022 6:17 PM Chest X-Ray 08/09/22 16:45 XR chest 1V portable CLINICAL HISTORY: Fever COMPARISON STUDY: Chest radiographs of June 21, 2022. Chest CT December 04, 2019. FINDINGS: Median sternotomy wires and mediastinal surgical clips are noted. Linear densities within the left lung are unchanged and favor scarring. Blunting of the left costophrenic angle is chronic. There is no pneumothorax or pleural effusion. There is been no change in appearance of the chest. Cardiomediastinal silhouette is stable. No consolidation is identified. IMPRESSION: No acute cardiopulmonary findings. ACT 112: Negative or not required by law. Electronically signed by: Dick Maldonado M.D. 08/09/2022 5:27 PM ECG Additional Comments: EKGPer my interpretation, study shows normal sinus rhythm at 84 bpm, normal axis, OK = 150, QRS = 90, QTc = 418, no acute ischemic changes PG Care Time/CCT Total # of Minutes Spent Total Time Spent with Patient: Total time spent is greater than 50% in coordination of care (as documented) at patient's floor/unit and/or counseling patient: Coding Level of Care Code 81908 INT INP/OBS CARE 3/75MIN Diagnoses Fever R50.9 Kidney transplanted Z94.0 CAD (coronary artery disease) I25.10 Hypertension I10 Dyslipidemia E78.5
[2022-08-09] MEDS ORDERED: ACETAMINOPHEN 325 MG TAB PO PRN (22:16)
[2022-08-09] MEDS ORDERED: ONDANSETRON INJ 2 MG/ML 2 ML VIAL IV PRN (22:16)
[2022-08-09 22:43] LABS: Magnesium 1.5 mg/dl (1.7-2.4); Phosphorus 2.5 mg/dl (2.5-4.9)
[2022-08-09] MEDS: LACTATED RINGER'S 1,000 ML IV SCH (22:48)
[2022-08-09] MEDS: ATORVASTATIN 40 MG TAB PO SCH (22:58)
[2022-08-09] MEDS: TACROLIMUS 1 MG CAP PO SCH (22:58)
[2022-08-09] MEDS: MYCOPHENOLATE MOFETIL 250 MG CAP PO SCH (22:58)
[2022-08-09] MEDS: TAMSULOSIN HCL 0.4 MG CAP PO SCH (22:59)
[2022-08-10] MEDS: MAGNESIUM SULFATE / D5W 1 GM/100 ML BAG IV SCH ×2 (01:55→03:56)
[2022-08-10] MEDS ORDERED: CEFEPIME 1,000 MG in SYRINGE 0 ML IV SCH (06:00)
[2022-08-10 07:22] LABS: Hematocrit (blood only) 30.9 % (42.0-52.0); Hemoglobin 10.3 g/dl (14.0-18.0); Mean Corpuscular Hemoglobin 29.4 pg (25.0-34.0); Mean Corpuscular Hgb Conc 33.3 g/dL (32.0-36.0); Mean Corpuscular Volume 88.3 fL (80.0-100.0); Mean Platelet Volume 9.9 fL (9.4-12.4); Platelet Count 160 K/uL (130-400); RDW Coefficient of Variation 13.3 % (11.5-14.5); RDW Standard Deviation 43.2 fL (36.4-46.3); White Blood Count 3.88 K/ul (4.8-10.8)
[2022-08-10 07:34] LABS: Calcium 9.3 mg/dl (8.6-10.3); Creatinine Clr Calc Pharmacy 42.4 ml/min; Est GFR (African American) 46.3 ml/min; Potassium 4.7 mmol/L (3.5-5.1)
--- NOTE | 2022-08-10 08:32 | Hospitalist Progress Note ---
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 #Neutropenic Fever #Acquired Immunodeficiency Patient on anti-rejection regimen with mycophenolate mofetil and tacrolimus. PPX Bactrim three times weekly. Patient had low grade fever x7 with 101 fever at time of presentation. No clear source of infection. Possible sinus infection. No CP, SOB, cough, abdominal pain, nausea, or vomiting. Does report mild dysuria. Labs: Leukopenic at 4 UA trace protein, no clear signs of infection BioFire neg CXR does not show consolidation or infiltrate CT A&P - perinephric stranding and inflammation concerning for infection vs acute on chronic rejection. Patient follows with [facility] as they performed his transplant. There was some confusion about dispo for patient. Patient was told to come to [facility] ED, but he presented to [facility] ED. The admitting provider, per documentation, was in contact with the transplant team at [facility] and he was accepted for transfer. He is awaiting a bed at this time. Will manage him acutely until he has a bed at [facility]. Had an extensive conversation with the patient regarding dispo. Patient expressed understanding of the reason for admission. Patient elected to stay in the hospital while awaiting a bed at [facility]. [] f/u cultures [] Tylenol PRN for fever [] cefepime for presumed bacterial source #ESRD s/p DDRT 05/21/2022 Patient with history of end-stage renal disease of unknown etiology status post kidney transplant performed on 05/21/[address] [facility]. He presents today with several days of intermittent fever. CT abdomen findings as above, perinephric inflammation and stranding concerning for infection versus acute on chronic rejection. Patient's urinalysis and overall clinical picture does not s trongly support an infection of urinary source. Unfortunately, findings are concerning for acute rejection - uncertain to what degree CT findings represent postoperative changes. Patient's renal function is slightly worse than baseline with BUN = 28, creatinine = 1.98 (baseline creatinine reported to be 1.5-1.7). Of note, he has been on an increased dose of Bactrim which can lead to elevated creatinine levels. Patient's urinalysis with only trace protein present. [] continue immunosuppressive agents - mycophenolate mofetil 1000 mg BID, tacrolimus 8 mg BID [] f/u CMV [] f/u tacro lvl [] awaiting bed at [facility] [] nephro on board #CAD Chronic. Stable. Patient status post CABG with subsequent stent placement in May 2022 closely following his transplant surgery. He denies chest pain or dyspnea. [] ASA 81 mg QD, Plavix 75 mg QD, atorvastatin 40 mg QD, metoprolol 50 mg QD #HTN Blood pressure mildly elevated at 146/74 [] Continue metoprolol 50 mg p.o. daily [] Continue to monitor #HLD Chronic. Stable. [] Continue atorvastatin 40 mg p.o. every afternoon [] FENLR at 100 mL/h x 2 L, monitor electrolytes and replete as neededBMP in the morning, heart healthy diet as tolerated [] Prophylaxislow risk for acute DVT. SCDs to bilateral lower extremities [] Codefull per discussion with patient and [] Dispositionmed/surg (2) Kidney transplanted: (3) CAD (coronary artery disease): (4) Hypertension: (5) Dyslipidemia: Admission and Anticipated Discharge Date Admission Date: August 09, 2022 Supervising Physician Co-Signing Physician Notes I personally examined the patient and verified all rasmussen points of history and exam, discussed case, and agree with decision making and plan documented by Dr. Davila. Keep patient here at [facility] prior to transport to [facility]. extensive discussion took place regarding need for him to stay and be medically monitored and then appropriately transferred via EMS Subjective Patient denies any pain. Not currently feeling febrile. No CP or SOB. Patient unclear on all the details of his current admission. Wants to be at [facility]. Wants to be there sooner rather than later. Uncertain why he could not wait for the bed at home. Review of Systems Review of Systems: See HPI Physical Exam Physical Exam: General: patient resting comfortably, NAD, non-toxic in appearance, AA&O x 4 Skin: warm, dry, intact, no rashes or lesions HEENT: NC/AT, PERRL, EOMI, anicteric sclera, conjunctiva without injection, nares patent, moist mucus membranes, dentition intact, no oropharyngeal lesions, neck supple, trachea midline, Heart: +S1/S2, regular, 3/6 systolic ejection murmur across precordium Lungs: equal air entry bilaterally, no rales/rhonchi/wheezes Abd: non-distended Ext: warm, well perfused Neuro: nonfocal, patient AA&O x 4, speech intact, no facial droop, moving all extremities spontaneously Results & Data Results & Data Vital Signs (Past 12 Hours) Vital Signs Temp Pulse Pulse Resp BP Pulse Ox O2 Del Method 08/10/22 07:51 36.9 C 79 18 130/65 96 Room Air 08/09/22 22:16 36.7 C 86 18 163/71 H 98 Room Air Laboratory Results 08/10/22 06:49 08/10/22 06:49 Diagnostic Findings Abdomen/Pelvis CT 08/09/22 16:[address] WITHOUT CONTRAST CT DOSE: 416.94 mGy.cm HISTORY: fever, h/o right kidney transplant TECHNIQUE: Multiaxial CT images of the abdomen and pelvis were performed without contrast. A dose lowering technique was utilized adhering to the principles of ALARA. COMPARISON STUDY: None. FINDINGS: Emphysema at the lung bases. There are few linear scarlike densities also seen at the lung bases. No pneumoperitoneum. No pneumatosis. No acute fractures identified. There are poststernotomy changes. The unenhanced liver, gallbladder, spleen, adrenal glands, and pancreas are unremarkable. There are atrophic [place] kidneys containing a few hypodense lesions. These are techn ically indeterminate on this noncontrast study but statistically represent cysts. Dominant lesion within the left kidney measures 1.9 cm. No stones or hydronephrosis within the [place] kidneys. Mild calcified plaque within the normal caliber abdominal aorta. No retroperitoneal lymphadenopathy. Moderate bladder wall thickening with adjacent fat stranding. The prostate gland is normal in size. Suboptimal evaluation for bowel pathology due to the lack of intravenous and oral contrast. However, there is no definite bowel wall thickening or obstruction. [id number] fecal retention is noted. Normal appendix. There is a right lower quadrant renal transplant noted. Right transplant perinephric edema/fat stranding. The right renal transplant appears edematous. There is also edema within the right renal sinus. Small sliver of perinephric fluid seen along the inferior aspect of the right renal transplant on image 327. This measures approximately 4.0 x 2.0 cm. IMPRESSION: 1. There is edema and fat stranding both within and surrounding the right lower quadrant renal transplant. This is nonspecific but favors an acute pyelonephritis. An acute on chronic rejection could also have a similar appearance in the appropriate clinical setting. Recommend correlation with urinalysis. 2. Small sliver of perinephric fluid inferior to the right renal transplant. This is likely reactive.. A developing perinephric abscess is considered less likely given the lack of associated gas but not entirely excluded. 3. Bladder wall thickening with associated fat stranding likely representing a cystitis. Recommend correlation with urinalysis. 4. No bowel wall thickening or obstruction. 5. Additional findings as described above. Chest X-Ray 08/09/22 16:45 XR chest 1V portable CLINICAL HISTORY: Fever COMPARISON STUDY: Chest radiographs of June 21, 2022. Chest CT December 04, 2019. FINDINGS: Median sternotomy wires and mediastinal surgical clips are noted. Linear densities within the left lung are unchanged and favor scarring. Blunting of the left costophrenic angle is chronic. There is no pneumothorax or pleural effusion. There is been no change in appearance of the chest. Cardiomediastinal silhouette is stable. No consolidation is identified. IMPRESSION: No acute cardiopulmonary findings. Resident Activity Tracking Resident Involvement: Resident Care Provided Care Provided: Adult Hospital Medicine
[2022-08-10] MEDS ORDERED: SULFA/TRIMETH 400/80MG TAB PO SCH (09:00)
[2022-08-10] MEDS: METOPROLOL SUCC 50MG EXT REL TAB PO SCH (09:08)
[2022-08-10] MEDS: CLOPIDOGREL BISULFATE 75 MG TAB PO SCH (09:08)
[2022-08-10] MEDS: ASPIRIN 81 MG ECTAB PO SCH (09:08)
[2022-08-10] MEDS: TACROLIMUS 1 MG CAP PO SCH ×2 (09:08→21:09)
[2022-08-10] MEDS: MYCOPHENOLATE MOFETIL 250 MG CAP PO SCH ×2 (09:09→21:08)
--- NOTE | 2022-08-10 11:26 | Electrocardiogram Report ---
Test Reason : Blood Pressure : / mmHG Vent. Rate : 084 BPM Atrial Rate : 084 BPM P-R Int : 150 ms QRS Dur : 090 ms QT Int : 354 ms P-R-T Axes : 049 067 047 degrees QTc Int : 418 ms Poor data quality, interpretation may be adversely affected Normal sinus rhythm Normal ECG No previous ECGs available Confirmed by Jeff Fuchs ([id number]) on 08/10/2022 11:26:40 AM Referred By: REFERRED SELF Confirmed By:Ricky Fuchs
[2022-08-10] MEDS: LACTATED RINGER'S 1,000 ML IV SCH (12:27)
[2022-08-10] MEDS: CEFEPIME 2,000 MG in SYRINGE 0 ML IV SCH (13:51)
--- NOTE | 2022-08-10 14:13 | Nephrology Consultation ---
Date of Consultation August 10, 2022 Assessment & Plan (1) Kidney transplanted: * ESKD likely due to IgA nephropathy. Patient was diagnosed w/ hematuria and low grade proteinuria at 24 years of age but did not undergo renal biopsy. His Cr maria luisa to 3.7 w/ EGFR 15 cc/min and Mr. Hough was referred to [facility] for transplant evaluation. Mr. Hough underwent DDRT 05/21/22 at [facility]. Post transplant Cr has stabilized at 1.3-1.6 * Continue current immunosuppressive regimen * Await trough Prograf level (2) Fever: * Admitted w/ febrile illness and Cr 1.9 * CT demonstrates perinephric edema and bladder thickening concerning for pyelonephritis/cystitis * Urinalysis negative for blood, WBC or bacteria. Initial blood and urine cultures are NGTD * Agree w starting IV Cefepime * Patient was CMV- and received only 4 weeks acyclovir therapy * CMV by PCR is pending * If CMV is positive, may need to reduce immunosuppression and consider valganciclovir therapy (3) S/P CABG (coronary artery bypass graft): * ASCVD s/p CABG x 4 2011, LARISSA to RCA 06/12/22 History of Present Illness Reason for Consultation: АННА, DDRT Attending Physician: Keegan Miguel, History of Present Illness Mr. Hough is a 67 year old male who is seen at the request of the hospitalist service for evaluation of АННА, DDRT. Information for the HPI is obtained from the patient and review of the EMR and is summarized as follows: Mr. Hough had CKD likely on the basis of IgA nephropathy. He was diagnosed w/ hematuria and low grade proteinuria at 24 years of age but did not undergo renal biopsy. His Cr maria luisa to 3.7 w/ EGFR 15 cc/min and Mr. Hough was referred to [facility] for transplant evaluation. Mr. Hough underwent DDRT 05/21/22 at [facility]. The kidney was a 3 AB, 1 DR mismatch. There was no delayed graft function and Mr. Hough did not require dialysis following transplantation. His serum Cr stabilized at 1.3-1.6. His current immunosuppressive regimen consists of Tacrolimus 8 mg po BID, MMF 1000 mg po BID. Mr. Hough's posttransplant course was complicated by angina and patient required LARISSA to RCA 06/12/22. Mr. Hough tested CMV -, EBV+ prior to transplantation. He received acyclovir therapy for 1 month. Mr. Hough reports T101 last evening. Evaluation at [facility] EMD revealed fat stranding surrounding the renal allograft and bladder wall thickening on CT scan. This is suggestive of pyelonephritis or chronic rejection. There was no hydronephrosis. IV hydration and Cefepime have been started. Arrangements have been made for transfer to [facility] for ongoing transplant management once a bed is available PMH: hematuria diagnosed at 24 years of age, low grade proteinuria, HTN, vitamin D deficiency, hypercholesterolemia and GERD. Former smoker w/ASCVD s/p CABG x 4 2011, LARISSA to RCA 06/12/22. L BC AVF created 04/24/[address] Zee Allergies Allergy/AdvReac Type Severity Reaction Status Date / Time iodine Allergy Unknown Hives Verified 08/09/22 20:28 Penicillins Allergy Unknown Hives Verified 08/09/22 20:28 shellfish derived Allergy Unknown Hives Verified 08/09/22 20:28 Home Medications Medication Instructions Recorded Confirmed Type aspirin 81 mg tablet,delayed 81 mg PO DAILY 12/23/18 08/09/22 History release metoprolol succinate 50 mg 50 mg PO DAILY #90 tabs 06/11/22 08/09/22 Rx tablet,extended release 24 hr magnesium oxide 800 mg PO BID 06/20/22 08/09/22 History mycophenolate mofetil 250 mg 1,000 mg PO BID 06/20/22 08/09/22 History capsule (CellCept) tacrolimus 1 mg capsule, 8 mg PO Q12H 06/20/22 08/09/22 History immediate-release (Prograf) fexofenadine 180 mg tablet 180 mg PO DAILY PRN allergies 06/21/22 08/09/22 History (Allergy Relief (fexofenadine)) furosemide 40 mg tablet (Lasix) 40 mg PO DAILY PRN edema #30 tabs 06/21/22 08/09/22 Rx ondansetron HCl 4 mg tablet 4 mg PO Q8H PRN Nausea 06/21/22 08/09/22 History simethicone 80 mg chewable tablet 80 mg PO DAILY PRN .gas/bloating 06/21/22 08/09/22 History (Gas Relief (simethicone)) atorvastatin 40 mg tablet 40 mg PO QPM #90 tabs 07/11/22 08/09/22 Rx clopidogrel 75 mg tablet (Plavix) 75 mg PO DAILY #90 tabs 07/11/22 08/09/22 Rx sulfamethoxazole 400 1 tab PO .COMPLEX 07/18/22 08/09/22 History mg-trimethoprim 80 mg tablet acetaminophen 500 mg tablet 1,000 mg PO HS 08/09/22 08/09/22 History (Tylenol Extra Strength) calcium carbonate 300 mg (750 mg) 600 mg PO BID PRN Acid Reflux 08/09/22 08/09/22 History chewable tablet (Tums) famotidine 20 mg tablet (Pepcid AC) 20 mg PO DAILY PRN Acid Reflux 08/09/22 08/09/22 History tamsulosin 0.4 mg capsule 0.4 mg PO QPM 08/09/22 08/09/22 History Patient History Medical History CAD (coronary artery disease) CKD (chronic kidney disease), stage IV Dyslipidemia Hypertension Kidney transplanted 05/21/22 [facility] Multiple lung nodules on CT Prior history of smoking Pleural effusion, left Prediabetes Primary hypogonadism in male Vitamin D deficiency Surgical History S/P arteriovenous (AV) fistula creation S/P CABG (coronary artery bypass graft) S/P coronary artery stent placement Family History Sister Coronary heart disease Hx of CABG ESRD (end stage renal disease) Unknown Colon cancer Mother Coronary heart disease PAD (peripheral artery disease) Denies family history of Ovarian cancer Prostate cancer Myocardial infarction Breast cancer Social History Smoking Status: Former smoker Tobacco Type: Cigarettes Age Started Using Tobacco: 15; Age Quit Using Tobacco: 38; packs per day: 1.5; Cigarettes Per Day: 20; Second Hand Exposure: No; Do You Dip or Chew Tobacco: No; Tobacco Cessation Education Requested by Patient: No Hx Alcohol Use: Yes Hx Substance Use: No Preferred Language: Irish Communication Ability: Effective Yard Clerk Required: No Beliefs That Will Affect Care: None marital status: Current Living Situation: Spouse current occupational status: retired Other Information That Helps Us Care for You: No Feels Safe at Home: Yes Safety Concerns: Feels Safe At This Time Childhood Exposure to Second-Hand Smoke: Yes caffeine: No Dental Care, Regularly: Yes Physical Activity Frequency: 1-2 Times per Week Seatbelt Use: always Sunscreen Use: Yes Assistive Devices: Glasses Review of Systems Constitutional: + fever Eyes: no problem reported Ear, Nose, Mouth, Throat: no problem reported Respiratory: no cough and no dyspnea Cardiovascular: no chest pain Gastrointestinal: no abdominal pain Genitourinary: no dysuria, no urinary hesitancy or no hematuria Physical Exam Constitutional: not in distress Eyes: PERRL, conjunctivae normal, anicteric sclerae ENMT: external ear and nose normal, oropharynx normal Neck: trachea midline, no thyromegaly Respiratory: normal respiratory effort, lungs clear to auscultation Cardiovascular: RRR, no murmur, no edema Extremities: + AV fistula (L BC AVF + bruit) Gastrointestinal (Abdomen): normal bowel sounds, soft, nontender, no hepatosplenomegaly renal allograft RLQ - NT, no arterial bruit Neurologic: Speech / Cognition: normal speech and normal cognition Results & Data Vital Signs (Past 12 Hours) Vital Signs Temp Pulse Resp BP Pulse Ox O2 Del Method 08/10/22 07:51 36.9 C 79 18 130/65 96 Room Air Laboratory Results Laboratory Tests 09/07/21 05/02/22 06/21/22 15:32 15:24 11:32 WBC Hgb Hct Plt Count Sodium Potassium Chloride Carbon Dioxide BUN Creatinine 4.02 H 3.67 H 1.77 H 08/09/22 08/10/22 08/10/22 17:08 06:49 06:49 WBC 3.88 L Hgb 10.3 L Hct 30.9 L Plt Count 160 Sodium 129 L Potassium 4.7 Chloride 102 Carbon Dioxide 22 BUN 24 H Creatinine 1.98 H 1.72 H 08/09/22 Urine Cx - Preliminary, NGTD 08/09/22 Blood Cx - Pending 08/09/22 CMV DNA PCR - Pending Diagnostic Findings 08/09/[address]: 1. There is edema and fat stranding both within and surrounding the right lower quadrant renal transplant. This is nonspecific but favors an acute pyelonephritis. An acute on chronic rejection could also have a similar appearance in the appropriate clinical setting. Recommend correlation with urinalysis. 2. Small sliver of perinephric fluid inferior to the right renal transplant. This is likely reactive.. A developing perinephric abscess is considered less likely given the lack of associated gas but not entirely excluded. 3. Bladder wall thickening with associated fat stranding likely representing a cystitis. Recommend correlation with urinalysis. 4. No bowel wall thickening or obstruction. 08/09/22 CXR: Median sternotomy wires and mediastinal surgical clips are noted. Linear densities within the left lung are unchanged and favor scarring. Blunting of the left costophrenic angle is chronic. There is no pneumothorax or pleural effusion. There is been no change in appearance of the chest. Cardiomediastinal silhouette is stable. No consolidation is identified. PG Care Time/CCT Total # of Minutes Spent Total Time Spent with Patient: Total time spent is greater than 50% in coordination of care (as documented) at patient's floor/unit and/or counseling patient: Coding Level of Care Code 70754 IN/OBS CONSULT LVL 5,80M Diagnoses Kidney transplanted Z94.0 Fever R50.9 S/P CABG (coronary artery bypass graft) Z95.1
[2022-08-10 14:19] LABS: Creatinine Urine Random 52.5 mg/dl
[2022-08-10] MEDS ORDERED: ACYCLOVIR 400 MG TAB PO SCH (17:00)
[2022-08-10] MEDS: TAMSULOSIN HCL 0.4 MG CAP PO SCH (21:08)
[2022-08-10] MEDS: ATORVASTATIN 40 MG TAB PO SCH (21:08)
[2022-08-11] MEDS: CEFEPIME 2,000 MG in SYRINGE 0 ML IV SCH ×2 (01:37→14:04)
[2022-08-11 06:42] LABS: Hematocrit (blood only) 31.9 % (42.0-52.0); Hemoglobin 10.6 g/dl (14.0-18.0); Mean Corpuscular Hemoglobin 29.6 pg (25.0-34.0); Mean Corpuscular Hgb Conc 33.2 g/dL (32.0-36.0); Mean Corpuscular Volume 89.1 fL (80.0-100.0); Mean Platelet Volume 10.1 fL (9.4-12.4); Platelet Count 179 K/uL (130-400); RDW Coefficient of Variation 13.2 % (11.5-14.5); RDW Standard Deviation 43.2 fL (36.4-46.3); Red Blood Count 3.58 M/uL (4.70-6.10); White Blood Count 2.54 K/ul (4.8-10.8)
[2022-08-11 06:53] LABS: Albumin Globulin Ratio 1.4 (0.9-2); Albumin Level 3.6 gm/dl (3.4-5.0); BUN Creatinine Ratio 16.5 (10-20); Bilirubin,Total 0.7 mg/dl (0.2-1.0); Calcium 9.6 mg/dl (8.6-10.3); Creatinine Clr Calc Pharmacy 40.1 ml/min; Est GFR (African American) 43.3 ml/min; Est GFR (Non-African American) 37.3 ml/min; Globulin 2.5 gm/dl (2.5-4.0); Potassium 4.6 mmol/L (3.5-5.1); Total Protein 6.1 gm/dl (6.0-8.3)
--- NOTE | 2022-08-11 07:05 | Hospitalist Progress Note ---
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 #Neutropenic Fever #Acquired Immunodeficiency Patient on anti-rejection regimen with mycophenolate mofetil and tacrolimus. PPX Bactrim three times weekly. Patient had low grade fever x7 with 101 fever at time of presentation. No clear source of infection. Possible sinus infection. No CP, SOB, cough, abdominal pain, nausea, or vomiting. Does report mild dysuria. Labs: Leukopenic at 4 UA trace protein, no clear signs of infection BioFire neg CXR does not show consolidation or infiltrate CT A&P - perinephric stranding and inflammation concerning for infection vs acute on chronic rejection. Patient follows with [facility] as they performed his transplant. There was some confusion about dispo for patient. [facility], but he presented to [facility] ED. The admitting provider, per documentation, was in contact with the transplant team at [facility] and he was accepted for transfer. He is awaiting a bed at this time. Will manage him acutely until he has a bed at [facility]. Had an extensive conversation with the patient regarding dispo. Patient expressed understanding of the reason for admission. Patient elected to stay in the hospital while awaiting a bed at [facility]. [] f/u cultures [] Tylenol PRN for fever [] cefepime for presumed bacterial source #ESRD s/p DDRT 05/21/2022 Patient with history of end-stage renal disease of unknown etiology status post kidney transplant performed on 05/21/2022 at [facility]. He presents today with several days of intermittent fever. CT abdomen findings as above, perinephric inflammation and stranding concerning for infection versus acute on chronic rejection. Patient's urinalysis and overall clinical picture does not s trongly support an infection of urinary source. Unfortunately, findings are concerning for acute rejection - uncertain to what degree CT findings represent postoperative changes. Patient's renal function is slightly worse than baseline with BUN = 28, creatinine = 1.98 (baseline creatinine reported to be 1.5-1.7). Of note, he has been on an increased dose of Bactrim which can lead to elevated creatinine levels. Patient's urinalysis with only trace protein present. [] continue immunosuppressive agents - mycophenolate mofetil 1000 mg BID, tacrolimus 8 mg BID [] f/u CMV [] f/u tacro lvl [] awaiting bed at [facility] [] nephro on board #CAD Chronic. Stable. Patient status post CABG with subsequent stent placement in May 2022 closely following his transplant surgery. He denies chest pain or dyspnea. [] ASA 81 mg QD, Plavix 75 mg QD, atorvastatin 40 mg QD, metoprolol 50 mg QD #HTN Blood pressure mildly elevated at 146/74 [] Continue metoprolol 50 mg p.o. daily [] Continue to monitor #HLD Chronic. Stable. [] Continue atorvastatin 40 mg p.o. every afternoon [] FENLR at 100 mL/h x 2 L, monitor electrolytes and replete as neededBMP in the morning, heart healthy diet as tolerated [] Prophylaxislow risk for acute DVT. SCDs to bilateral lower extremities [] Codefull per discussion with patient and [] Dispositionmed/surg (2) Kidney transplanted: (3) CAD (coronary artery disease): (4) Hypertension: (5) Dyslipidemia: Admission and Anticipated Discharge Date Admission Date: August 09, 2022 Subjective Patient denies any pain. Not currently feeling febrile. No CP or SOB. Patient unclear on all the details of his current admission. Wants to be at [facility]. Wants to be there sooner rather than later. Uncertain why he could not wait for the bed at home. Review of Systems Review of Systems: See HPI Physical Exam Physical Exam: General: patient resting comfortably, NAD, non-toxic in appearance, AA&O x 4 Skin: warm, dry, intact, no rashes or lesions HEENT: NC/AT, PERRL, EOMI, anicteric sclera, conjunctiva without injection, nares patent, moist mucus membranes, dentition intact, no oropharyngeal lesions, neck supple, trachea midline, Heart: +S1/S2, regular, 3/6 systolic ejection murmur across precordium Lungs: equal air entry bilaterally, no rales/rhonchi/wheezes Abd: non-distended Ext: warm, well perfused Neuro: nonfocal, patient AA&O x 4, speech intact, no facial droop, moving all extremities spontaneously Results & Data Results & Data Laboratory Results 08/11/22 05:52 08/11/22 05:52
[2022-08-11 07:48] LABS: Magnesium 1.5 mg/dl (1.7-2.4)
--- NOTE | 2022-08-11 08:23 | Discharge Summary ---
Date of Service August 11, 2022 Admission HPI Per Admitting Provider Kevin Hough is a pleasant 67-year-old male with history of end-stage renal disease due to unknown etiology status post donor kidney transplantation 05/21/2022. He is on immunosuppressive therapy with mycophenolate mofetil and tacrolimus as well as prophylactic Bactrim 3 times weekly. Patient presents today with complaint of fever. Patient had a routine follow-up appointment with the transplant service at [facility] on 08/02/2022. At that time he was doing well with no acute complaints. Upon returning home, he developed a low-grade fever of 100.1. He was seen in his primary care office on 08/03/2022 with complaint of dizziness and acute sinusitis. He was given a prescription for Levaquin 500 mg daily which, after reviewing the side effects, he did not take due to concern for potential complications with his transplant. He called his PCP again and was told he could increase his Bactrim from his prophylactic dose of 1 tab 3 times weekly (Saturday/Saturday/Saturday) to twice daily dosing x7 days for treatment of presumed sinusitis. Patient has taken 2 days of twice daily dosing thus far. Patient had an elevated temperature last night to 101 which prompted him to come to the ER. He denies chills, body aches, chest pain, cough, shortness of breath. Denies abdominal pain, nausea, vomiting. He has had some loose stools but does not describe diarrhea. No blood or mucus in his bowel movements. He reports normal urine output with no hematuria or foamy urine. Yesterday he did experience some very mild discomfort with urination. No additional complaints at this time In the ER he is afebrile, mildly hypertensive otherwise hemodynamically stable. Normal respiratory status saturating 99% on room air. ER course: Normal saline x1 L Cefepime 2 g IV Admission Exam Per Admitting Provider General: patient resting comfortably, NAD, non-toxic in appearance, AA&O x 4 Skin: warm, dry, intact, no rashes or lesions HEENT: NC/AT, PERRL, EOMI, anicteric sclera, conjunctiva without injection, external ear normal to inspection and nontender, nares patent, moist mucus membranes, dentition intact, no oropharyngeal lesions, neck supple, trachea midline, no LAD, no thyromegaly, no JVD Heart: +S1/S2, regular, 3/6 systolic ejection murmur across precordium Lungs: equal air entry bilaterally, no rales/rhonchi/wheezes Abd: +BS, soft, NT/ND, no masses/organomegaly/ascites, well-healed incision in right lower quadrant at site of renal transplant. Very mild tenderness with palpation of transplanted kidney. Ext: warm, 2+ pulses in UE/LE bilaterally, no clubbing/cyanosis or edema, AV fistula left upper extremity with palpable thrill Neuro: nonfocal, patient AA&O x 4, speech intact, no facial droop, moving all extremities on command with equal strength 5/5 Principal Diagnosis neutropenic fever secondary to gram positive bacteremia Discharge Exam General: patient resting comfortably, NAD, non-toxic in appearance Skin: warm, dry, intact, no rashes or lesions HEENT: NC/AT, PERRL, EOMI, anicteric sclera, conjunctiva without injection, nares patent, moist mucus membranes, dentition intact, no oropharyngeal lesions, neck supple, trachea midline, Heart: +S1/S2, regular, 3/6 systolic ejection murmur across precordium Lungs: equal air entry bilaterally, no rales/rhonchi/wheezes Abd: non-distended Ext: warm, well perfused Neuro: nonfocal, alert and oriented, speech intact, no facial droop, moving all extremities spontaneously Discharge Data Allergies Allergy/AdvReac Type Severity Reaction Status Date / Time iodine Allergy Unknown Hives Verified 08/09/22 20:28 Penicillins Allergy Unknown Hives Verified 08/09/22 20:28 shellfish derived Allergy Unknown Hives Verified 08/09/22 20:28 Consultations 08/09/22 19:41 ED Decision to Admit Stat 08/09/22 22:16 Consult Nephrology Routine 08/11/22 07:07 Burn CD for patient Stat Ordered Studies Abdomen/Pelvis CT 08/09/22 16:[address] WITHOUT CONTRAST CT DOSE: 416.94 mGy.cm HISTORY: fever, h/o right kidney transplant TECHNIQUE: Multiaxial CT images of the abdomen and pelvis were performed without contrast. A dose lowering technique was utilized adhering to the principles of ALARA. COMPARISON STUDY: None. FINDINGS: Emphysema at the lung bases. There are few linear scarlike densities also seen at the lung bases. No pneumoperitoneum. No pneumatosis. No acute fractures identified. There are poststernotomy changes. The unenhanced liver, gallbladder, spleen, adrenal glands, and pancreas are unremarkable. There are atrophic [place] kidneys containing a few hypodense lesions. These are technically indeterminate on this noncontrast study but statistically represent cysts. Dominant lesion within the left kidney measures 1.9 cm. No stones or hydronephrosis within the [place] kidneys. Mild calcified plaque within the normal caliber abdominal aorta. No retroperitoneal lymphadenopathy. Moderate bladder wall thickening with adjacent fat stranding. The prostate gland is normal in size. Suboptimal evaluation for bowel pathology due to the lack of intravenous and oral contrast. However, there is no definite bowel wall thickening or obstruction. [id number] fecal retention is noted. Normal appendix. There is a right lower quadrant renal transplant noted. Right t ransplant perinephric edema/fat stranding. The right renal transplant appears edematous. There is also edema within the right renal sinus. Small sliver of perinephric fluid seen along the inferior aspect of the right renal transplant on image 327. This measures approximately 4.0 x 2.0 cm. IMPRESSION: 1. There is edema and fat stranding both within and surrounding the right lower quadrant renal transplant. This is nonspecific but favors an acute pyelonephritis. An acute on chronic rejection could also have a similar appearance in the appropriate clinical setting. Recommend correlation with urinalysis. 2. Small sliver of perinephric fluid inferior to the right renal transplant. This is likely reactive.. A developing perinephric abscess is considered less likely given the lack of associated gas but not entirely excluded. 3. Bladder wall thickening with associated fat stranding likely representing a cystitis. Recommend correlation with urinalysis. 4. No bowel wall thickening or obstruction. 5. Additional findings as described above. Chest X-Ray 08/09/22 16:45 XR chest 1V portable CLINICAL HISTORY: Fever COMPARISON STUDY: Chest radiographs of June 21, 2022. Chest CT December 04, 2019. FINDINGS: Median sternotomy wires and mediastinal surgical clips are noted. Linear densities within the left lung are unchanged and favor scarring. Blunting of the left costophrenic angle is chronic. There is no pneumothorax or pleural effusion. There is been no change in appearance of the chest. Cardiomediastinal silhouette is stable. No consolidation is identified. IMPRESSION: No acute cardiopulmonary findings. 08/11/22 05:52 08/11/22 05:52 Hospital Course (1) Fever: 67 y/o male with a PMHx of ESRD likely 2/2 to IgA nephropathy s/p DDRT on 05/21/2022 at [facility] presented with neutropenic fever and was admitted for further work up now awaiting transfer to [facility]. #Neutropenic Fever #Acquired Immunodeficiency Patient on anti-rejection regimen with mycophenolate mofetil and tacrolimus. PPX Bactrim three times weekly. Patient had low grade fever x7 with 101 fever at time of presentation. No clear source of infection. Possible sinus infection. No CP, SOB, cough, abdominal pain, nausea, or vomiting. Does report mild dysuria. Cefepime for presumed bacterial source. Blood cultures grew gram positive cocci in clusters. Labs: Leukopenic at 4 UA trace protein, no clear signs of infection BioFire neg CXR does not show consolidation or infiltrate CT A&P - perinephric stranding and inflammation concerning for infection vs acute on chronic rejection. Patient follows with [facility] as they performed his transplant. There was some confusion about dispo for patient. Patient was told to come to [facility] ED, but he presented to [facility] ED. The admitting provider, per documentation, was in contact with the transplant team at [facility] and he was accepted for transfer. He is awaiting a bed at this time. Will manage him acutely until he has a bed at [facility]. Had an extensive conversation with the patient regarding dispo. Patient expressed understanding of the reason for admission. Patient elected to stay in the hospital while awaiting a bed at [facility]. #ESRD s/p DDRT 05/21/2022 Patient with history of end-stage renal disease of unknown etiology status post kidney transplant performed on 05/21/2022 at [facility]. He presents today with several days of intermittent fever. CT abdomen findings as above, perine phric inflammation and stranding concerning for infection versus acute on chronic rejection. Patient's urinalysis and overall clinical picture does not strongly support an infection of urinary source. Unfortunately, findings are concerning for acute rejection - uncertain to what degree CT findings represent postoperative changes. Patient's renal function is slightly worse than baseline with BUN = 28, creatinine = 1.98 (baseline creatinine reported to be 1.5-1.7). Of note, he has been on an increased dose of Bactrim which can lead to elevated creatinine levels. Patient's urinalysis with only trace protein present. Nephro consulted during admission. Continue home immunosuppressive regimen. CMV pending. #CAD Chronic. Stable. Patient status post CABG with subsequent stent placement in J anuary 2022 closely following his transplant surgery. He denies chest pain or dyspnea. ASA 81 mg QD, Plavix 75 mg QD, atorvastatin 40 mg QD, metoprolol 50 mg QD #HTN Stable. Continue metoprolol 50 mg p.o. daily #HLD Chronic. Stable. Continue atorvastatin 40 mg p.o. every afternoon [] FEN heart healthy diet as tolerated [] Prophylaxislow risk for acute DVT. SCDs to bilateral lower extremities [] Codefull per discussion with patient and [] Dispositiontransfer to [facility] (2) Kidney transplanted: (3) CAD (coronary artery disease): (4) Hypertension: (5) Dyslipidemia: Total Time Total Time Spent Total Time Spent (In Minutes): See attending attestation Discharge Plan Discharge Items Patient Disposition: Transfer Acute Care Hospital Reason For Visit: ?TRANSPLANT REJECTION Discharge Diagnosis: neutropenic fever Activity: Per Instructions section Non-emergency contact: Primary Care Provider, Surgeon and Pyrometer Operator Call non-emergency contact if: you have any medication questions, your pain is concerning for you and your temperature is above 101.5 Follow-up/Referrals: Kandice Dumont MD [Primary Care Provider] - Diet: Heart Healthy Addtl Attending Provider Instructions: 67 y/o male with a PMHx of ESRD likely 2/2 to IgA nephropathy s/p DDRT on 05/21/2022 at [facility] presented with neutropenic fever and was admitted for further work up now awaiting transfer to [facility]. #Neutropenic Fever #Acquired Immunodeficiency Patient on anti-rejection regimen with mycophenolate mofetil and tacrolimus. PPX Bactrim three times weekly. Patient had low grade fever x7 with 101 fever at time of presentation. No clear source of infection. Possible sinus infection. No CP, SOB, cough, abdominal pain, nausea, or vomiting. Does report mild dysuria. Cefepime for presumed bacterial source. Blood cultures grew gram positive cocci in clusters. Labs: Leukopenic at 4 UA trace protein, no clear signs of infection BioFire neg CXR does not show consolidation or infiltrate CT A&P - perinephric stranding and inflammation concerning for infection vs acute on chronic rejection. Patient follows with [facility] as they performed his transplant. There was some confusion about dispo for patient. Patient was told to come to [facility] ED, but he presented to [facility] ED. The admitting provider, per documentation, was in contact with the transplant team at [facility] and he was accepted for transfer. He is awaiting a bed at this time. Will manage him acutely until he has a bed at [facility]. Had an extensive conversation with the patient regarding dispo. Patient expressed understanding of the reason for admission. Patient elected to stay in the hospital while awaiting a bed at [facility]. #ESRD s/p DDRT 05/21/2022 Patient with history of end-stage renal disease of unknown etiology status post kidney transplant performed on 05/21/2022 at [facility]. He presents today with several days of intermittent fever. CT abdomen findings as above, perinephric inflammation and stranding concerning for infection versus acute on chronic rejection. Patient's urinalysis and overall clinical picture does not strongly support an infection of urinary source. Unfortunately, findings are concerning for acute rejection - uncertain to what degree CT findings represent postoperative changes. Patient's renal function is slightly worse than baseline with BUN = 28, creatinine = 1.98 (baseline creatinine reported to be 1.5-1.7). Of note, he has been on an increased dose of Bactrim which can lead to elevated creatinine levels. Patient's urinalysis with only trace protein present. Nephro consulted during admission. Continue home immunosuppressive regimen. CMV pending. #CAD Chronic. Stable. Patient status post CABG with subsequent stent placement in May 2022 closely following his transplant surgery. He denies chest pain or dyspnea. ASA 81 mg QD, Plavix 75 mg QD, atorvastatin 40 mg QD, metoprolol 50 mg QD #HTN Stable. Continue metoprolol 50 mg p.o. daily #HLD Chronic. Stable. Continue atorvastatin 40 mg p.o. every afternoon [] FEN heart healthy diet as tolerated [] Prophylaxislow risk for acute DVT. SCDs to bilateral lower extremities [] Codefull per discussion with patient and [] Dispositionmed/surg Pending Studies at Discharge: Yes Studies:: CMV Stand-Alone Forms: [facility] Skilled Items Patient informed of condition?: Yes DNR: No Discharge Level of Care: Other Communicable Disease: No Discharge Prognosis: Stable Lines: None Urinary Catheter: No Medications and DC Order Prescriptions: Continued metoprolol succinate 50 mg tablet extended release 24 hr 50 mg PO DAILY Qty: 90 3RF furosemide [Lasix] 40 mg tablet 40 mg PO DAILY PRN (Reason: edema) Qty: 30 2RF Rx Instructions: Take as needed for weight gain, lower extremity swelling, or increased shortness of breath clopidogrel [Plavix] 75 mg tablet 75 mg PO DAILY Qty: 90 3RF atorvastatin 40 mg tablet 40 mg PO QPM Qty: 90 3RF aspirin 81 mg tablet,delayed release (DR/EC) 81 mg PO DAILY mycophenolate mofetil [CellCept] 250 mg capsule 1,000 mg PO BID tacrolimus [Prograf] 1 mg capsule 8 mg PO Q12H Rx Instructions: Uses 1 mg & 5mg to equal dose. magnesium oxide 400 mg magnesium tablet 800 mg PO BID sulfamethoxazole-trimethoprim 400-80 mg tablet 1 tab PO .COMPLEX Rx Instructions: NEW INSTRUCTIONS FOR 7 DAYS. Take double dose for 7 days, starting saturday. Regular dosing is, 1 tab orally 3x week . ondansetron HCl 4 mg tablet 4 mg PO Q8H PRN (Reason: Nausea) fexofenadine [Allergy Relief (fexofenadine)] 180 mg tablet 180 mg PO DAILY PRN (Reason: allergies) simethicone [Gas Relief (simethicone)] 80 mg tablet,chewable 80 mg PO DAILY PRN (Reason: .gas/bloating) acetaminophen [Tylenol Extra Strength] 500 mg Tablet 1,000 mg PO HS calcium carbonate [Tums] 300 mg (750 mg) Tablet,Chewable 600 mg PO BID PRN (Reason: Acid Reflux) famotidine [Pepcid AC] 20 mg Tablet 20 mg PO DAILY PRN (Reason: Acid Reflux) tamsulosin 0.4 mg capsule 0.4 mg PO QPM Discharge Orders: Discharge Order (Routine); Ordered 08/11/22 Ordered By: Stefany Davila Admission Data Admit Date/Time: 08/09/22 20:08 Attending Provider: Keegan Miguel Admit Provider: Lucretia Macias Primary Care Provider: Kandice Dumont Other Providers: Lucretia Macias Stephen M. Other Interventions: Discharge Summary Assessment (RN) Last Done: 08/11/22 10:56 Supervising Physician Co-Signing Physician Notes I personally examined the patient and verified all rasmussen points of history and exam, discussed case, and agree with decision making and plan documented by Dr. Davila. It appears that reason for neutropenic fever is gram positive bacteremia. continue broad spectrum antibiotics upon transfer to [facility] facility. Time spent with discharge plannin minutes Resident Activity Tracking Resident Involvement: Resident Care Provided Care Provided: Adult Hospital Medicine
[2022-08-11 08:49] LABS: A calco-baum cmplx NotReported Not Detected (NotDetected); Bact fragilis Not Reported Not Detected (NotDetected); C auris Not Reported Not Detected (NotDetected); Calbicans Not Reported Not Detected (NotDetected); Candida glabrata Not Reported Not Detected (NotDetected); Candida krusei Not Reported Not Detected (NotDetected); Cneoformans/gatti Not Reported Not Detected (NotDetected); Cparapsilosis Not Reported Not Detected (NotDetected); Ctropicalis Not Reported Not Detected (NotDetected); E cloacae compx Not Reported Not Detected (NotDetected); Efaecalis Not Reported Not Detected (NotDetected); Efaecium Not Reported Not Detected (NotDetected); Enterobacterales Not Reported Not Detected (NotDetected); Escherichia coli Not Reported Not Detected (NotDetected); H influenzae Not Reported Not Detected (NotDetected); K aerogenes Not Reported Not Detected (NotDetected); Koxytoca Not Reported Not Detected (NotDetected); Kpneumoniae grp Not Reported Not Detected (NotDetected); Lmonocyt Not Reported Not Detected (NotDetected); N meningitidis Not Reported Not Detected (NotDetected); P aeruginosa Not Reported Not Detected (NotDetected); Proteus spp Not Reported Not Detected (NotDetected); Salmonella spp Not Reported Not Detected (NotDetected); Smarcescens Not Reported Not Detected (NotDetected); Staph lugdunensis Not Reported Not Detected (NotDetected); Staph spp. Not Reported Not Detected (NotDetected); Staphaureus Not Reported Not Detected (NotDetected); Staphepi Not Reported Not Detected (NotDetected); Stenmaltophilia Not Reported Not Detected (NotDetected); Strep agal(GrpB) Not Reported Not Detected (NotDetected); Strep pneum Not Reported Not Detected (NotDetected); Strep pyog (GrpA) Not Reported Not Detected (NotDetected); Strep spp Not Reported Not Detected (NotDetected)
[2022-08-11] MEDS: CLOPIDOGREL BISULFATE 75 MG TAB PO SCH (09:01)
[2022-08-11] MEDS: MYCOPHENOLATE MOFETIL 250 MG CAP PO SCH ×2 (09:01→21:05)
[2022-08-11] MEDS: TACROLIMUS 1 MG CAP PO SCH ×2 (09:01→21:06)
[2022-08-11] MEDS: ASPIRIN 81 MG ECTAB PO SCH (09:02)
[2022-08-11] MEDS: METOPROLOL SUCC 50MG EXT REL TAB PO SCH (09:02)
--- NOTE | 2022-08-11 12:58 | Nephrology Progress Note ---
Date of Service August 11, 2022 Assessment & Plan (1) Acute pyelonephritis: (2) Kidney transplanted: (3) Fever: (4) Hypertension: Plan 67-year-old male with history of LURT on 05/22/22 with baseline allograft function with creatinine around 1.5-1.7. Admitted with febrile illness for few days, creatinine was 1.[address] abdomen demonstrated perinephric edema and bladder thickening concerning for pyelonephritis /cystitis, started on IV cefepime. Overall clinically improved and doing better, waiting for transfer to [facility] where he had the kidney transplant 2 months ago. CMV PCR pending --Continue on current immunosuppressive and IV antibiotic while waiting for transfer. Admission and Anticipated Discharge Date Admission Date: August 09, 2022 Willa Brown was seen and evaluated this morning with his at bedside. He was otherwise feeling well, denied any fever, dysuria, hematuria in at kidney allograft area. Appetite has been decent. Blood pressure well controlled. He was waiting for transfer to [facility]. Review of Systems Review of Systems: Detailed review of system was otherwise unremarkable. Physical Exam Constitutional: WD/WN, vitals as above no acute distress Eyes: + anicteric sclerae Neck: normal visual inspection Respiratory: Auscultation: lungs clear to auscultation bilaterally Cardiovascular: RRR, no murmur, no edema Gastrointestinal (Abdomen): rt LQ allograft area non tender. Skin: no rashes, warm and dry Neurologic: no focal motor deficits Psychiatric: Orientation: alert and oriented x 3 Results & Data Vital Signs (Past 12 Hours) Vital Signs Temp Pulse Pulse Resp BP Pulse Ox O2 Del Method 08/11/22 10:56 36.5 C 79 79 18 122/66 96 08/11/22 08:08 36.5 C 79 18 122/66 96 Room Air PG Care Time/CCT Total # of Minutes Spent Total Time Spent with Patient: Total time spent is greater than 50% in coordination of care (as documented) at patient's floor/unit and/or counseling patient: Coding Level of Care Code 47081 SUB INP/OBS CARE 2/35MIN Diagnoses Acute pyelonephritis N10 Kidney transplanted Z94.0 Fever R50.9 Hypertension I10
[2022-08-11] MEDS ORDERED: FAMOTIDINE 20 MG TAB PO PRN (17:40)
[2022-08-11] MEDS: ATORVASTATIN 40 MG TAB PO SCH (21:04)
[2022-08-11] MEDS: TAMSULOSIN HCL 0.4 MG CAP PO SCH (21:06)
[2022-08-12] MEDS: CEFEPIME 2,000 MG in SYRINGE 0 ML IV SCH (02:00)
--- NOTE | 2022-08-12 07:01 | Discharge Summary ---
Date of Service August 12, 2022 Admission HPI Per Admitting Provider Kevin Hough is a pleasant 67-year-old male with history of end-stage renal disease due to unknown etiology status post donor kidney transplantation 05/21/2022. He is on immunosuppressive therapy with mycophenolate mofetil and tacrolimus as well as prophylactic Bactrim 3 times weekly. Patient presents today with complaint of fever. Patient had a routine follow-up appointment with the transplant service at [facility] on 08/02/2022. At that time he was doing well with no acute complaints. Upon returning home, he developed a low-grade fever of 100.1. He was seen in his primary care office on 08/03/2022 with complaint of dizziness and acute sinusitis. He was given a prescription for Levaquin 500 mg daily which, after reviewing the side effects, he did not take due to concern for potential complications with his transplant. He called his PCP again and was told he could increase his Bactrim from his prophylactic dose of 1 tab 3 times weekly (Saturday/Saturday/Saturday) to twice daily dosing x7 days for treatment of presumed sinusitis. Patient has taken 2 days of twice daily dosing thus far. Patient had an elevated temperature last night to 101 which prompted him to come to the ER. He denies chills, body aches, chest pain, cough, shortness of breath. Denies abdominal pain, nausea, vomiting. He has had some loose stools but does not describe diarrhea. No blood or mucus in his bowel movements. He reports normal urine output with no hematuria or foamy urine. Yesterday he did experience some very mild discomfort with urination. No additional complaints at this time In the ER he is afebrile, mildly hypertensive otherwise hemodynamically stable. Normal respiratory status saturating 99% on room air. ER course: Normal saline x1 L Cefepime 2 g IV Admission Exam Per Admitting Provider General: patient resting comfortably, NAD, non-toxic in appearance, AA&O x 4 Skin: warm, dry, intact, no rashes or lesions HEENT: NC/AT, PERRL, EOMI, anicteric sclera, conjunctiva without injection, external ear normal to inspection and nontender, nares patent, moist mucus membranes, dentition intact, no oropharyngeal lesions, neck supple, trachea midline, no LAD, no thyromegaly, no JVD Heart: +S1/S2, regular, 3/6 systolic ejection murmur across precordium Lungs: equal air entry bilaterally, no rales/rhonchi/wheezes Abd: +BS, soft, NT/ND, no masses/organomegaly/ascites, well-healed incision in right lower quadrant at site of renal transplant. Very mild tenderness with palpation of transplanted kidney. Ext: warm, 2+ pulses in UE/LE bilaterally, no clubbing/cyanosis or edema, AV fistula left upper extremity with palpable thrill Neuro: nonfocal, patient AA&O x 4, speech intact, no facial droop, moving all extremities on command with equal strength 5/5 Principal Diagnosis gram positive bacteremia Discharge Exam General: patient up and out of bed, getting ready to leave, NAD, non-toxic in appearance Skin: warm, dry, intact, no rashes or lesions HEENT: NC/AT, PERRL, EOMI, anicteric sclera, conjunctiva without injection, nares patent, moist mucus membranes, neck supple, trachea midline, Heart: +S1/S2, regular, 3/6 systolic ejection murmur across precordium Lungs: equal air entry bilaterally, no rales/rhonchi/wheezes Abd: non-distended Ext: warm, well perfused Neuro: nonfocal, alert and oriented, speech intact, no facial droop, moving all extremities spontaneously Discharge Data Allergies Allergy/AdvReac Type Severity Reaction Status Date / Time iodine Allergy Unknown Hives Verified 08/09/22 20:28 Penicillins Allergy Unknown Hives Verified 08/09/22 20:28 shellfish derived Allergy Unknown Hives Verified 08/09/22 20:28 Consultations 08/09/22 19:41 ED Decision to Admit Stat 08/09/22 22:16 Consult Nephrology Routine 08/11/22 07:07 Burn CD for patient Stat Ordered Studies ABDOMEN AND PELVIS CT WITHOUT CONTRAST CT DOSE: 416.94 mGy.cm HISTORY: fever, h/o right kidney transplant TECHNIQUE: Multiaxial CT images of the abdomen and pelvis were performed without contrast. A dose lowering technique was utilized adhering to the principles of ALARA. COMPARISON STUDY: None. FINDINGS: Emphysema at the lung bases. There are few linear scarlike densities also seen at the lung bases. No pneumoperitoneum. No pneumatosis. No acute fractures identified. There are poststernotomy changes. The unenhanced liver, gallbladder, spleen, adrenal glands, and pancreas are unremarkable. There are atrophic habematolel kidneys containing a few hypodense lesions. These are technically indeterminate on this noncontrast study but statistically represent cysts. Dominant lesion within the left kidney measures 1.9 cm. No stones or hydronephrosis within the habematolel kidneys. Mild calcified plaque within the normal caliber abdominal aorta. No retroperitoneal lymphadenopathy. Moderate bladder wall thickening with adjacent fat stranding. The prostate gland is normal in size. Suboptimal evaluation for bowel pathology due to the lack of intravenous and oral contrast. However, there is no definite bowel wall thickening or obstruction. [id number] fecal retention is noted. Normal appendix. There is a right lower quadrant renal transplant noted. Right t ransplant perinephric edema/fat stranding. The right renal transplant appears edematous. There is also edema within the right renal sinus. Small sliver of perinephric fluid seen along the inferior aspect of the right renal transplant on image 327. This measures approximately 4.0 x 2.0 cm. IMPRESSION: 1. There is edema and fat stranding both within and surrounding the right lower quadrant renal transplant. This is nonspecific but favors an acute pyelonephritis. An acute on chronic rejection could also have a similar appearance in the appropriate clinical setting. Recommend correlation with urinalysis. 2. Small sliver of perinephric fluid inferior to the right renal transplant. This is likely reactive.. A developing perinephric abscess is considered less likely given the lack of associated gas but not entirely excluded. 3. Bladder wall thickening with associated fat stranding likely representing a cystitis. Recommend correlation with urinalysis. 4. No bowel wall thickening or obstruction. 5. Additional findings as described above. Chest X-Ray 08/09/22 16:45 XR chest 1V portable CLINICAL HISTORY: Fever COMPARISON STUDY: Chest radiographs of June 21, 2022. Chest CT December 04, 2019. FINDINGS: Median sternotomy wires and mediastinal surgical clips are noted. Linear densities within the left lung are unchanged and favor scarring. Blunting of the left costophrenic angle is chronic. There is no pneumothorax or pleural effusion. There is been no change in appearance of the chest. Cardiomediastinal silhouette is stable. No consolidation is identified. IMPRESSION: No acute cardiopulmonary findings. 08/11/22 05:52 03/25/23 05:52 Hospital Course (1) Fever: 67 y/o male with a PMHx of ESRD likely /2 to IgA nephropathy s/p DDRT on 05/21/[address] [facility] presented with neutropenic fever found to have gram positive bacteremia now awaiting transfer to [facility]. #Neutropenic Fever #Acquired Immunodeficiency Patient on anti-rejection regimen with mycophenolate mofetil and tacrolimus. PPX Bactrim three times weekly. Patient had low grade fever x7 with 101 fever at time of presentation. No clear source of infection. Possible sinus infection. No CP, SOB, cough, abdominal pain, nausea, or vomiting. Does report mild dysuria. Cefepime for presumed bacterial source. Blood cultures grew gram positive cocci in clusters. Labs: Leukopenic at 4 UA trace protein, no clear signs of infection BioFire neg CXR does not show consolidation or infiltrate CT A&P - perinephric stranding and inflammation concerning for infection vs acute on chronic rejection. Patient follows with [facility] as they performed his transplant. There was some confusion about dispo for patient. Patient was told to come to [facility] ED, but he presented to [facility] ED. The admitting provider, per documentation, was in contact with the transplant team at [facility] and he was accepted for transfer. He is awaiting a bed at this time. Will manage him acutely until he has a bed at [facility]. Had an extensive conversation with the patient regarding dispo. Patient expressed understanding of the reason for admission. Patient elected to stay in the hospital while awaiting a bed at [facility]. #ESRD s/p DDRT 05/21/2022 Patient with history of end-stage renal disease of unknown etiology status post kidney transplant performed on 05/21/2022 at [facility]. He presents today with several days of intermittent fever. CT abdomen findings as above, perineph edwin inflammation and stranding concerning for infection versus acute on chronic rejection. Patient's urinalysis and overall clinical picture does not strongly support an infection of urinary source. Unfortunately, findings are concerning for acute rejection - uncertain to what degree CT findings represent postoperative changes. Patient's renal function is slightly worse than baseline with BUN = 28, creatinine = 1.98 (baseline creatinine reported to be 1.5-1.7). Of note, he has been on an increased dose of Bactrim which can lead to elevated creatinine levels. Patient's urinalysis with only trace protein present. Nephro consulted during admission. Continue home immunosuppressive regimen. CMV pending. #CAD Chronic. Stable. Patient status post CABG with subsequent stent placement in May closely following his transplant surgery. He denies chest pain or dyspnea. ASA 81 mg QD, Plavix 75 mg QD, atorvastatin 40 mg QD, metoprolol 50 mg QD #HTN Stable. Continue metoprolol 50 mg p.o. daily #HLD Chronic. Stable. Continue atorvastatin 40 mg p.o. every afternoon [] FEN heart healthy diet as tolerated [] Prophylaxislow risk for acute DVT. SCDs to bilateral lower extremities [] Codefull per discussion with patient and [] Dispositiontransfer to [facility] (2) Kidney transplanted: (3) CAD (coronary artery disease): (4) Hypertension: (5) Dyslipidemia: Total Time Total Time Spent Total Time Spent (In Minutes): See attending attestation Discharge Plan Discharge Items Patient Disposition: Transfer Acute Care Hospital Reason For Visit: ?TRANSPLANT REJECTION Discharge Diagnosis: neutropenic fever, gram positive bacteremia Activity: Per Instructions section Non-emergency contact: Primary Care Provider, Surgeon and Physician President Call non-emergency contact if: you have any medication questions, your pain is concerning for you and your temperature is above 101.5 Follow-up/Referrals: Kandice Dumont MD [Primary Care Provider] - Diet: Heart Healthy Addtl Attending Provider Instructions: 67 y/o male with a PMHx of ESRD likely 2/2 to IgA nephropathy s/p DDRT on 05/21/[address] [facility] presented with neutropenic fever and was admitted for further work up now awaiting transfer to [facility]. #Neutropenic Fever #Acquired Immunodeficiency Patient on anti-rejection regimen with mycophenolate mofetil and tacrolimus. PPX Bactrim three times weekly. Patient had low grade fever x7 with 101 fever at time of presentation. No clear source of infection. Possible sinus infection. No CP, SOB, cough, abdominal pain, nausea, or vomiting. Does report mild dysuria. Cefepime for presumed bacterial source. Blood cultures grew gram positive cocci in clusters. Labs: Leukopenic at 4 UA trace protein, no clear signs of infection BioFire neg CXR does not show consolidation or infiltrate CT A&P - perinephric stranding and inflammation concerning for infection vs acu te on chronic rejection. Patient follows with [facility] as they performed his transplant. There was some confusion about dispo for patient. Patient was told to come to [facility] ED, but he presented to [facility] ED. The admitting provider, per documentation, was in contact with the transplant team at [facility] and he was accepted for transfer. He is awaiting a bed at this time. Will manage him acutely until he has a bed at [facility]. Had an extensive conversation with the patient regarding dispo. Patient expre ssed understanding of the reason for admission. Patient elected to stay in the hospital while awaiting a bed at [facility]. #ESRD s/p DDRT 05/21/2022 Patient with history of end-stage renal disease of unknown etiology status post kidney transplant performed on 05/21/2022 [address] [facility]. He presents today with several days of intermittent fever. CT abdomen findings as above, perinephric inflammation and stranding concerning for infection versus acute on chronic rejection. Patient's urinalysis and overall clinical picture does not strongly support an infection of urinary source. Unfortunately, findings are concerning for acute rejection - uncertain to what degree CT findings represent postoperative changes. Patient's renal function is slightly worse than baseline with BUN = 28, creatinine = 1.98 (baseline creatinine reported to be 1.5-1.7). Of note, he has been on an increased dose of Bactrim which can lead to elevated creatinine levels. Patient's urinalysis with only trace protein present. Nephro consulted during admission. Continue home immunosuppressive regimen. CMV pending. #CAD Chronic. Stable. Patient status post CABG with subsequent stent placement in May 2022 closely following his transplant surgery. He denies chest pain or dyspnea. ASA 81 mg QD, Plavix 75 mg QD, atorvastatin 40 mg QD, metoprolol 50 mg QD #HTN Stable. Continue metoprolol 50 mg p.o. daily #HLD Chronic. Stable. Continue atorvastatin 40 mg p.o. every afternoon [] FEN heart healthy diet as tolerated [] Prophylaxislow risk for acute DVT. SCDs to bilateral lower extremities [] Codefull per discussion with patient and [] Dispositionmed/surg Pending Studies at Discharge: Yes Studies:: CMV Stand-Alone Forms: [facility] Patient informed of condition?: Yes DNR: No Discharge Level of Care: Other Communicable Disease: No Discharge Prognosis: Stable Lines: None Urinary Catheter: No Medications and DC Order Prescriptions: Continued metoprolol succinate 50 mg tablet extended release 24 hr 50 mg PO DAILY Qty: 90 3RF furosemide [Lasix] 40 mg tablet 40 mg PO DAILY PRN (Reason: edema) Qty: 30 2RF Rx Instructions: Take as needed for weight gain, lower extremity swelling, or increased shortness of breath clopidogrel [Plavix] 75 mg tablet 75 mg PO DAILY Qty: 90 3RF atorvastatin 40 mg tablet 40 mg PO QPM Qty: 90 3RF aspirin 81 mg tablet,delayed release (DR/EC) 81 mg PO DAILY mycophenolate mofetil [CellCept] 250 mg capsule 1,000 mg PO BID tacrolimus [Prograf] 1 mg capsule 8 mg PO Q12H Rx Instructions: Uses 1 mg & 5mg to equal dose. magnesium oxide 400 mg magnesium tablet 800 mg PO BID sulfamethoxazole-trimethoprim 400-80 mg tablet 1 tab PO .COMPLEX Rx Instructions: NEW INSTRUCTIONS FOR 7 DAYS. Take double dose for 7 days, starting saturday. Regular dosing is, 1 tab orally 3x week - . ondansetron HCl 4 mg tablet 4 mg PO Q8H PRN (Reason: Nausea) fexofenadine [Allergy Relief (fexofenadine)] 180 mg tablet 180 mg PO DAILY PRN (Reason: allergies) simethicone [Gas Relief (simethicone)] 80 mg tablet,chewable 80 mg PO DAILY PRN (Reason: .gas/bloating) acetaminophen [Tylenol Extra Strength] 500 mg Tablet 1,000 mg PO HS calcium carbonate [Tums] 300 mg (750 mg) Tablet,Chewable 600 mg PO BID PRN (Reason: Acid Reflux) famotidine [Pepcid AC] 20 mg Tablet 20 mg PO DAILY PRN (Reason: Acid Reflux) tamsulosin 0.4 mg capsule 0.4 mg PO QPM Discharge Orders: Discharge Order (Routine); Ordered 08/11/22 Ordered By: Stefany Davlia Admission Data Admit Date/Time: 08/09/22 20:08 Attending Provider: Keegan Miguel Admit Provider: Lucretia Macias Primary Care Provider: Kandice Dumont Other Providers: Lucretia Macias ; Ja Rojo Other Interventions: Discharge Summary Assessment (RN) Last Done: 08/12/22 04:10 Supervising Physician Co-Signing Physician Notes I personally examined the patient and verified all rasmussen points of history and exam, discussed case, and agree with decision making and plan documented by Dr. Davila. It appears that reason for neutropenic fever is gram positive bacteremia. continue broad spectrum antibiotics upon transfer to [facility] facility. Time spent with discharge plannin minutes Resident Activity Tracking Resident Involvement: Resident Care Provided Care Provided: Adult Hospital Medicine
--- NOTE | 2022-08-12 07:04 | Hospitalist Progress Note ---
Date of Service August 11, 2022 Assessment & Plan (1) Fever: Plan: 67 y/o male with a PMHx of ESRD likely 2/2 to IgA nephropathy s/p DDRT on 05/21/2022 at [facility] presented with neutropenic fever found to have gram positive bacteremia now awaiting transfer to [facility]. #Neutropenic Fever #Acquired Immunodeficiency Patient on anti-rejection regimen with mycophenolate mofetil and tacrolimus. PPX Bactrim three times weekly. Patient had low grade fever x7 with 101 fever at time of presentation. No clear source of infection. Possible sinus infection. No CP, SOB, cough, abdominal pain, nausea, or vomiting. Does report mild dysuria. Cefepime for presumed bacterial source. Blood cultures grew gram positive cocci in clusters. Labs: Leukopenic at 4 UA trace protein, no clear signs of infection BioFire neg CXR does not show consolidation or infiltrate CT A&P - perinephric stranding and inflammation concerning for infection vs acute on chronic rejection. Patient follows with [facility] as they performed his transplant. There was some confusion about dispo for patient. Patient was told to come to [facility] ED, but he presented to [facility] ED. The admitting provider, per documentation, was in contact with the transplant team at [facility] and he was accepted for transfer. He is awaiting a bed at this time. Will manage him acutely until he has a bed at [facility]. Had an extensive conversation with the patient regarding dispo. Patient expressed understanding of the reason for admission. Patient elected to stay in the hospital while awaiting a bed at [facility]. #ESRD s/p DDRT 05/21/2022 Patient with history of end-stage renal disease of unknown etiology status post kidney transplant performed on 05/21/2022 at [facility]. He presents today with several days of intermittent fever. CT abdomen findings as above, perinephric inflammation and stranding concerning for infection versus acute on chronic rejection. Patient's urinalysis and overall clinical picture does not strongly support an infection of urinary source. Unfortunately, findings are concerning for acute rejection - uncertain to what degree CT findings represent postoperative changes. Patient's renal function is slightly worse than baseline with BUN = 28, creatinine = 1.98 (baseline creatinine reported to be 1.5-1.7). Of note, he has been on an increased dose of Bactrim which can lead to elevated creatinine levels. Patient's urinalysis with only trace protein present. Nephro consulted during admission. Continue home immunosuppressive regimen. CMV pending. #CAD Chronic. Stable. Patient status post CABG with subsequent stent placement in May 2022 closely following his transplant surgery. He denies chest pain or dyspnea. ASA 81 mg QD, Plavix 75 mg QD, atorvastatin 40 mg QD, metoprolol 50 mg QD #HTN Stable. Continue metoprolol 50 mg p.o. daily #HLD Chronic. Stable. Continue atorvastatin 40 mg p.o. every afternoon [] FEN heart healthy diet as tolerated [] Prophylaxislow risk for acute DVT. SCDs to bilateral lower extremities [] Codefull per discussion with patient and [] Dispositiontransfer to [facility] (2) Kidney transplanted: (3) CAD (coronary artery disease): (4) Hypertension: (5) Dyslipidemia: Admission and Anticipated Discharge Date Admission Date: August 09, 2022 Supervising Physician Co-Signing Physician Notes I personally examined the patient and verified all rasmussen points of history and exam, discussed case, and agree with decision making and plan documented by Dr. Davila. It appears that reason for neutropenic fever is gram positive bacteremia. continue broad spectrum antibiotics upon transfer to [facility] facility. Subjective No complaints this AM. Ready for transport. Review of Systems Review of Systems: see HPI Physical Exam Physical Exam: General: patient resting comfortably, NAD, non-toxic in appearance, AA&O x 4 Skin: warm, dry, intact, no rashes or lesions HEENT: NC/AT, PERRL, EOMI, anicteric sclera, conjunctiva without injection, nares patent, moist mucus membranes, dentition intact, no oropharyngeal lesions, neck supple, trachea midline, Heart: +S1/S2, regular, 3/6 systolic ejection murmur across precordium Lungs: equal air entry bilaterally, no rales/rhonchi/wheezes Abd: non-distended Ext: warm, well perfused Neuro: nonfocal, patient AA&O x 4, speech intact, no facial droop, moving all extremities spontaneously Results & Data Results & Data Vital Signs (Past 12 Hours) Vital Signs Temp Pulse Pulse Resp BP Pulse Ox O2 Del Method 08/12/22 04:10 36.5 C 79 73 18 128/70 98 08/11/22 20:15 36.5 C 73 18 128/70 98 Room Air Laboratory Results 08/11/22 05:52 08/11/22 05:52 Resident Activity Tracking Resident Involvement: Resident Care Provided Care Provided: Adult Hospital Medicine
[2022-08-13 14:37] LABS: CMV DNA PCR Qual NOT DETECTED; Source Whole Blood
== END 2022-08-12 08:21 | disposition short-term general hospital (02) | DRG 808 ==
LOC: ED 16:29 → 3N 20:08 → SUATTDRO 20:08 → 3N 21:58

== ENCOUNTER 2025-02-09 14:09 | Inpatient (IN) ==
--- NOTE | 2025-02-09 14:56 | Electrocardiogram Report ---
Test Reason : Blood Pressure : */* mmHG Vent. Rate : 87 BPM Atrial Rate : 87 BPM P-R Int : 162 ms QRS Dur : 100 ms QT Int : 376 ms P-R-T Axes : 30 42 30 degrees QTcB Int : 452 ms Normal sinus rhythm Poor R wave progression, consider anterior OK vs. lead placement vs. LVH Abnormal ECG When compared with ECG of 18-Feb-2023 08:18, (unconfirmed) No significant change was found Confirmed by Keegan Garcia ([id number]) on 02/09/2025 2:55:58 PM Referred By: Confirmed By: Keegan Garcia
[2025-02-09 15:11] LABS: Hematocrit (blood only) 35.5 % (42.0-52.0); Hemoglobin 11.9 g/dl (14.0-18.0); Immature Granulocytes # (auto) 0.02 K/uL (0.01-0.20); Immature Granulocytes % (auto) 0.3 %; Mean Corpuscular Hemoglobin 28.1 pg (25.0-34.0); Mean Corpuscular Volume 83.7 fL (80.0-100.0); Platelet Count 261 K/uL (130-400); RDW Standard Deviation 45.4 fL (36.4-46.3); Red Blood Count 4.24 M/uL (4.70-6.10); White Blood Count 6.35 K/ul (4.8-10.8)
[2025-02-09 15:16] LABS: Alanine Aminotransferase 31.0 U/L (7-52); Albumin Globulin Ratio 1.3 (0.9-2); Albumin Level 3.9 gm/dl (3.4-5.0); Alkaline Phosphatase 96.0 U/L (34-104); Anion Gap 7.0 (3-11); Bilirubin,Total 1.6 mg/dl (0.2-1.0); Blood Urea Nitrogen 38.0 mg/dl (6-23); Calcium 9.8 mg/dl (8.6-10.3); Carbon Dioxide 22.0 mmol/L (21-32); Chloride 104.0 mmol/L (98-107); Creatinine Clr Calc Pharmacy 39.0 ml/min; Globulin 3.0 gm/dl (2.5-4.0); Glucose 104.0 mg/dl (70-99(Fasting)); Potassium 4.4 mmol/L (3.5-5.1); Sodium 133.0 mmol/L (136-145); Total Protein 6.9 gm/dl (6.0-8.3)
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
[2025-02-09 15:32] LABS: Magnesium 1.9 mg/dl (1.7-2.4)
[2025-02-09 16:24] LABS: Appearance Urine Clear (Clear); Bacteria Urine Automated None Seen (None Seen); Cast Urine Automated 0-2 /lpf (0-2); Epithelial Cell Urine Auto 0-2 /hpf (0-2); Glucose Urine UA Negative (Negative); RBC Urine Automated 0-2 /hpf (0-2); WBC Urine Automated 0-5 /hpf (0-5)
--- NOTE | 2025-02-09 16:37 | Ultrasound Report ---
EXAMINATION: Ultrasound venous Doppler lower extremity bilateral CLINICAL HISTORY: Swelling PRIORS: None TECHNIQUE: Ultrasound interrogation of the deep venous structures was performed with grayscale, color Doppler, compression and augmentation. FINDINGS: The bilateral common femoral, superficial femoral, saphenous, popliteal and tibial veins demonstrate normal compressibility, frequency and augmentation. IMPRESSION: No sonographic evidence of deep venous thrombosis in the bilateral lower extremities. Electronically signed by Sadia Delong 02-09-2025 4:36 PM
[2025-02-09 16:56] LABS: Chlamydia pneumoniae PCR Not Detected (NotDetected); Coronavirus 229E PCR Not Detected (NotDetected); Coronavirus CoV-2 (COVID19)PCR Not Detected (NotDetected); Coronavirus HKU1 PCR Not Detected (NotDetected); Coronavirus NL63 PCR Not Detected (NotDetected); Coronavirus OC43PCR Not Detected (NotDetected); Human Metapneumovirus PCR Not Detected (NotDetected); Parainfluenza Virus 1 PCR Not Detected (NotDetected); Parainfluenza Virus 2 PCR Not Detected (NotDetected); Parainfluenza Virus 3 PCR Not Detected (NotDetected); Parainfluenza Virus 4 PCR Not Detected (NotDetected); Respiratory Syncytial VirusPCR Not Detected (NotDetected); Rhinovirus/Enterovirus PCR DETECTED (NotDetected)
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
[2025-02-09] MEDS ORDERED: ACETAMINOPHEN 325 MG TAB PO PRN (20:01)
[2025-02-09] MEDS ORDERED: ALBUT/IPRATROP 3MG/0.5MG NEB 3 ML VIAL NEB PRN (20:01)
[2025-02-09] MEDS: MYCOPHENOLATE MOFETIL 250 MG CAP PO SCH (21:03)
[2025-02-09] MEDS: ATORVASTATIN 40 MG TAB PO SCH (21:04)
[2025-02-09] MEDS: FUROSEMIDE 40 MG/4 ML VIAL IV SCH (21:08)
[2025-02-09] MEDS: TAMSULOSIN HCL 0.4 MG CAP PO SCH (21:43)
[2025-02-09] MEDS: FINASTERIDE 5 MG TAB PO SCH (21:43)
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
[2025-02-10] MEDS: ISOSORBIDE MONO EXTENDED REL 60 MG TABCR PO SCH (08:27)
[2025-02-10] MEDS: METOPROLOL SUCC 25MG EXT REL TAB PO SCH (08:27)
[2025-02-10] MEDS: ASPIRIN 81 MG ECTAB PO SCH (08:27)
[2025-02-10] MEDS: CHOLECALCIFEROL 10 MCG (400 UNITS) TAB PO SCH (08:27)
[2025-02-10] MEDS: SULFA/TRIMETH 400/80MG TAB PO SCH (08:28)
[2025-02-10] MEDS: TACROLIMUS 1 MG PO SCH (08:28)
[2025-02-10] MEDS ORDERED: TAMSULOSIN HCL 0.4 MG CAP PO SCH ×2 (09:00→21:00)
[2025-02-10] MEDS ORDERED: FINASTERIDE 5 MG TAB PO SCH ×2 (09:00→21:00)
--- NOTE | 2025-02-10 09:01 | XCELERA ---
[id number]
[2025-02-10 11:52] VITALS: BP 110/61; PULSE 89; RESP 18; TEMP 97.9; O2SAT 97
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
== END 2025-02-10 14:57 | disposition home or self-care (01) | DRG 291 ==
LOC: ED 14:09 → 2S 17:15